=== PATIENT | female | born 1955 | race Caucasian/White ===

== ENCOUNTER → 2017-01-11 | Outpatient (CLI) | payer MEDICARE, OTHER | LOC: WI 15:00 | PROVIDERS: ATTEND Obstetrics & Gynecology Gynecology | DX: Z12.31 Encounter for screening mammogram for malignant neoplasm of breast (principal) | CPT/HCPCS: 77067; G0202 ==

== ENCOUNTER 2017-04-30 06:17 | Inpatient (IN) | payer MEDICARE, OTHER ==
[2017-04-30] MEDS ORDERED: PROPOFOL 100 ML IV ONE ×2 (06:30→12:00)
--- NOTE | 2017-04-30 06:37 | ER Document Report ---
ED General - General Stated Complaint: UNRESPONSIVE Time Seen by Provider: 04/30/17 06:27 Mode of Arrival: Medic Information source: Emergency Med Personnel Cannot obtain history due to: Altered mental status Notes: 62-year-old female found minimally responsive by EMS. notes last night he noted she was normal at 1130, patient has threatened suicidal ideations over the past few days. Patient is on many medications. Patient found with a GCS of 6 intermittent decorticate and decerebrate movements TRAVEL OUTSIDE OF THE [place] IN LAST 30 DAYS: No - HPI Onset: Just prior to arrival Onset/Duration: Sudden Quality of pain: No pain Severity: Severe Pain Level: Denies Associated symptoms: Other Exacerbated by: Denies Relieved by: Denies Similar symptoms previously: No Recently seen / treated by doctor: No - Related Data Allergies/Adverse Reactions: Sulfa (Sulfonamide Antibiotics) Allergy (Verified 04/30/17 08:56) RASH Past Medical History - Social History Smoking Status: Never Smoker Cigarette use (# per day): No Chew tobacco use (# tins/day): No Smoking Education Provided: No Family History: Reviewed & Not Pertinent - Past Medical History Cardiac Medical History: Denies: Hx Heart Attack, Hx Hypertension Pulmonary Medical History: Denies: Hx Asthma Neurological Medical History: Denies: Hx Cerebrovascular Accident, Hx Seizures GI Medical History: Denies: Hx Hepatitis, Hx Hiatal Hernia, Hx Ulcer Musculoskeltal Medical History: Reports Hx Arthritis Infectious Medical History: Denies: Hx Hepatitis Past Surgical History: Reports: Hx Orthopedic Surgery - left knee surgery, Hx Tonsillectomy. Denies: Hx Hysterectomy, Hx Mastectomy, Hx Open Heart Surgery, Hx Pacemaker Review of Systems - Review of Systems Notes: ALL OTHER SYSTEMS REVIEWED AND NEGATIVE. PHYSICAL EXAMINATION: GENERAL: Obese female HEAD: Atraumatic, normocephalic. EYES: Pupils are 3 mm bilateral minimally reactive ENT: Nares patent, oropharynx clear without exudates. Moist mucous membranes. NECK: Normal range of motion, supple without lymphadenopathy LUNGS: Breath sounds clear to auscultation bilaterally and equal. No wheezes rales or rhonchi. HEART: Regular rate and rhythm without murmurs ABDOMEN: Soft, nontender, nondistended abdomen. No guarding, no rebound. No masses appreciated. Female : deferred Musculoskeletal: Normal range of motion, no pitting or edema. No cyanosis. NEUROLOGICAL: GCS 6, E1, V1, M4 SKIN: Warm, Dry, normal turgor, no rashes or lesions noted. Dictation was performed using [employer] voice recognition software Physical Exam - Vital signs Vitals: Resp Pulse Ox 17 98 04/30/17 06:19 04/30/17 06:19 Course - Re-evaluation Re-evalutation: 04/30/17 06:37 Patient was immediately intubated on arrival due to GCS of 6 for airway protection. There is a concern for overdose per . At this time labwork is pending CT of the head has been ordered 04/30/17 08:46 CT negative, no obvious source of infection except possible pneumonia given hx of suicidal thoughts this may be more likely a suicide attempt pt is stable at this time, Dr Nanda mcgovern 04/30/17 09:03 Patient will be admitted to the primary care physician at this time - Vital Signs Vital signs: Temp Pulse Resp BP Pulse Ox 96.0 F L 14 105/60 100 04/30/17 08:58 04/30/17 08:58 04/30/17 08:58 04/30/17 08:58 - Laboratory Result Diagrams: 04/30/17 07:05 04/30/17 07:05 Laboratory results interpreted by me: 04/30/17 04/30/17 04/30/17 07:05 07:05 07:37 Hct 35.4 L BUN 26 H Glucose 139 H Direct Bilirubin 0.6 H Urine Ascorbic Acid 40 H Salicylates < 1.0 L Acetaminophen < 10 L - Diagnostic Test Radiology reviewed: Image reviewed, Reports reviewed - Possible pneumonia - EKG Interpretation by Me EKG shows normal: Sinus rhythm, Gordon, Intervals, QRS Complexes Critical Care Note - Critical Care Note Total time excluding time spent on procedures (mins): 55 Comments: 55 minutes of critical care time spent in direct contact evaluating and reevaluating the patient, treating symptoms, reviewing labs and studies and speaking with family and consultants excluding any procedures Discharge - Discharge Clinical Impression: Suicide attempt Respiratory failure Qualifiers: Chronicity: acute Respiratory failure complication: unspecified whether with hypoxia or hypercapnia Qualified Code(s): J96.00 - Acute respiratory failure, unspecified whether with hypoxia or hypercapnia Pneumonia Qualifiers: Pneumonia type: due to unspecified organism Laterality: left Lung location: lower lobe of lung Qualified Code(s): J18.1 - Lobar pneumonia, unspecified organism Altered mental status Qualifiers: Altered mental status type: coma Coma depth: [place] coma 3-8 Coma timing: in the field (EMT or ambulance) Qualified Code(s): R40.2431 - [place] coma scale score 3-8, in the field [EMT or ambulance] Condition: Fair Disposition: ADMITTED INPATIENT Admitting Provider: [facility] Unit Admitted: ICU
[2017-04-30] MEDS ORDERED: FENTANYL CITRATE INJ/PF 100 MCG/2 ML AMPUL IV ONE ×2 (06:45→07:55)
[2017-04-30] MEDS ORDERED: MIDAZOLAM HCL 100 ML IV PRN (06:45)
[2017-04-30] MEDS ORDERED: FENTANYL CITRATE INJ/PF 100 MCG/2 ML AMPUL ONE (06:48)
[2017-04-30] MEDS ORDERED: MIDAZOLAM HCL 100 ML IV ONE (06:49)
--- NOTE | 2017-04-30 07:07 | RADIOLOGY REPORT (SQ) ---
EXAM DESCRIPTION: CHEST SINGLE VIEW COMPLETED DATE/TIME: 04/30/2017 6:50 am REASON FOR STUDY: post intubation COMPARISON: 11/05/2011. EXAM PARAMETERS: NUMBER OF VIEWS: One view. TECHNIQUE: Single frontal radiographic view of the chest acquired. RADIATION DOSE: NA LIMITATIONS: None. FINDINGS: LUNGS AND PLEURA: Moderate lung volumes. Small atelectasis or scar of the left lower lung . MEDIASTINUM AND HILAR STRUCTURES: No masses. Contour normal. HEART AND VASCULAR STRUCTURES: Mild enlargement of the cardiac silhouette. BONES: No acute findings. HARDWARE: Adequate appearing endotracheal and NG tubes. OTHER: No other significant finding. IMPRESSION: New small left lower lobar atelectasis or scar. Moderate lung volumes. Lines and tubes . TECHNICAL DOCUMENTATION: JOB ID: [id number]
[2017-04-30 07:27] LABS: VENOUS BLOOD BASE EXCESS 1.1 mmol/L; VENOUS BLOOD HCO3 28.2 mmol/L (20-32); VENOUS BLOOD PCO2 56.3 mmHg (35-63); VENOUS BLOOD PH 7.32 (7.30-7.42)
[2017-04-30] MEDS ORDERED: LEVOFLOXACIN 750 MG/D5W RTU 150 ML IV ONE (07:30)
[2017-04-30 07:31] LABS: ABSOLUTE EOSINOPHILS # (AUTO) 0.1 10^3/uL (0.0-0.6); ABSOLUTE LYMPHOCYTES (AUTO) 1.2 10^3/uL (0.5-4.7); ABSOLUTE MONOCYTES (AUTO) 0.4 10^3/uL (0.1-1.4); ABSOLUTE NEUT (AUTO) 4.4 10^3/uL (1.7-8.2); BASOPHILS % (AUTO) 0.4 % (0-2); EOSINOPHILS % (AUTO) 2.3 % (0-6); HEMATOCRIT 35.4 % (36.0-47.0); HEMOGLOBIN 12.1 g/dL (12.0-15.5); HGB HCT DIFFERENCE 0.9; LYMPHOCYTES % (AUTO) 19.2 % (13-45); MEAN CORPUSCULAR HEMOGLOBIN 31.7 pg (27.0-33.4); MEAN CORPUSCULAR HGB CONC 34.2 g/dL (32.0-36.0); MEAN CORPUSCULAR VOLUME 93 fl (80-97); MONOCYTES % (AUTO) 7.1 % (3-13); RED BLOOD COUNT 3.82 10^6/uL (3.72-5.28); RED CELL DISTRIBUTION WIDTH 13.7 % (11.5-14.0); WHITE BLOOD COUNT 6.2 10^3/uL (4.0-10.5)
[2017-04-30 07:32] LABS: PROTHROMBIN TIME 12.2 SEC (11.4-15.4)
[2017-04-30] MEDS ORDERED: NALOXONE HCL INJ 2 MG/2 ML DISP.SYRIN ONE (07:35)
[2017-04-30] MEDS ORDERED: ETOMIDATE INJ/PF 20 MG/10 ML SDV IV ONE ×2 (07:35→08:45)
[2017-04-30 07:41] LABS: ALANINE AMINOTRANSFERASE 33 U/L (9-52); ALBUMIN 4.1 g/dL (3.5-5.0); ALKALINE PHOSPHATASE 94 U/L (38-126); ANION GAP 9 (5-19); ASPARTATE AMINO TRANSFERASE 24 U/L (14-36); BILIRUBIN,DIRECT 0.6 mg/dL (0.0-0.4); BILIRUBIN,TOTAL 0.7 mg/dL (0.2-1.3); BLOOD UREA NITROGEN 26 mg/dL (7-20); CALCIUM 9.1 mg/dL (8.4-10.2); CARBON DIOXIDE 26 mmol/L (22-30); CHLORIDE 103 mmol/L (98-107); CREATININE RESULT 0.94 mg/dL (0.52-1.25); GLUCOSE 139 mg/dL (75-110); POTASSIUM 4.3 mmol/L (3.6-5.0); SODIUM 138.2 mmol/L (137-145); TOTAL PROTEIN 6.9 g/dL (6.3-8.2)
--- NOTE | 2017-04-30 07:52 | EKG REPORT ---
SEVERITY:- ABNORMAL ECG - SINUS RHYTHM FIRST DEGREE AV BLOCK LVH BY VOLTAGE : Confirmed by: Danish Adams MD 30-Apr-2017 07:51:24
[2017-04-30 07:54] LABS: APPEARANCE,URINE CLEAR; BILIRUBIN,URINE NEGATIVE (NEGATIVE); GLUCOSE, URINE NEGATIVE (NEGATIVE); KETONES,URINE NEGATIVE (NEGATIVE); LEUKOCYTE ESTERASE,URINE NEGATIVE (NEGATIVE); NITRITE,URINE NEGATIVE (NEGATIVE); PROTEIN,URINE NEGATIVE (NEGATIVE); URINE SPECIFIC GRAVITY 1.023; UROBILINOGEN,URINE NEGATIVE mg/dL (<2.0)
[2017-04-30 08:19] LABS: URINE BARBITURATES SCREEN NEGATIVE; URINE METHADONE SCREEN NEGATIVE; URINE OPIATES LOW NEGATIVE; URINE PHENCYCLIDINE SCREEN NEGATIVE
[2017-04-30] MEDS: NORMAL SALINE 1000 ML 1,000 ML IV PRN ×5 (08:31→22:28)
[2017-04-30] MEDS ORDERED: NORMAL SALINE 100 ML with VECURONIUM BROMIDE 10 MG IV PRN ×2 (08:34)
--- NOTE | 2017-04-30 08:34 | RADIOLOGY REPORT (SQ) ---
EXAM DESCRIPTION: CT HEAD WITHOUT COMPLETED DATE/TIME: 04/30/2017 8:15 am REASON FOR STUDY: altered COMPARISON: None. TECHNIQUE: Axial images acquired through the brain without intravenous contrast. Images reviewed wi th bone, brain and subdural windows. Images stored on PACS. All CT scanners at this facility use dose modulation, iterative reconstruction, and/or weight based d osing when appropriate to reduce radiation dose to as low as reasonably achievable (ALARA). [facility]: Dose Right [facility]: CareDose [facility]: Dose Right [facility]: Teradose 4D [facility]: [employer] RADIATION DOSE: Up-to-date CT equipment and radiation dose reduction techniques were employed. CTDIv ol: 56.2 mGy. DLP: 1163 mGy-cm. mGy. LIMITATIONS: Motion artifact, streak artifact from earrings FINDINGS: Mild motion artifact throughout the study. No acute intracranial hemorrhage, mass effect, or midline shift. Spotty white matter disease. Nasoenteric and endotracheal tubes are seen at the bottom edge of the field of view. Caps IMPRESSION: Motion artifact throughout the study. No major intracranial hemorrhage, mass effect or midline shift. TECHNICAL DOCUMENTATION: JOB ID: [id number] Quality ID # [id number]: Final reports with documentation of one or more dose reduction techniques (e.g., Au tomated exposure control, adjustment of the mA and/or kV according to patient size, use of iterative reconstruction technique) 2010 [facility]- All Rights Reserved
[2017-04-30] MEDS ORDERED: SUCCINYLCHOLINE CHLORIDE INJ 200 MG/10 ML VIAL IV ONE (08:45)
[2017-04-30] MEDS ORDERED: ROCURONIUM BROMIDE INJ 50 MG/5 ML VIAL IV ONE ×2 (09:06→10:49)
[2017-04-30] MEDS ORDERED: ENOXAPARIN SODIUM INJ 40 MG/0.4 ML DISP.SYRIN SUBCUT SCH (10:00)
[2017-04-30] MEDS ORDERED: DEXTROSE 40% GEL 15 GM TUBE PO PRN ×2 (10:00)
[2017-04-30] MEDS ORDERED: GLUCAGON,HUMAN RECOMB 1 MG INJ SUBCUT PRN (10:00)
[2017-04-30] MEDS ORDERED: DEXTROSE 50%-WATER 25 GM/50 ML DISP.SYRIN IV PRN ×2 (10:00)
[2017-04-30 10:02] LABS: ARTERIAL BLOOD BASE EXCESS -2.8 mmol/L; ARTERIAL BLOOD O2 SATURATION 97.4 % (94-98)
[2017-04-30] MEDS: FAMOTIDINE INJ/PF 20 MG/2 ML SDV IV SCH ×2 (10:18→21:06)
--- NOTE | 2017-04-30 10:35 | PDOC CONSULTATION ---
Consultation Consult Date: 04/30/17 Attending physician:: BABAR JAIME Consult reason:: acute resp failure History of Present Illness Admission Date/PCP: 04/30/17 09:31 BABAR JAIME, History of Present Illness: IRA VALLEJO is a 62-year-old female found by spouse to be on the floor unresponsive call EMT subsequently patient was brought to the emergency room intubated. She has not been seen in her normal state 6-7 hours before the discovery. She had no prior complaints his pain nausea vomiting fevers chills shortness of breath. He has no childhood history of lung disease a does have a history of being exposed to passive smoke as a child and adult she has never smoked she lives with spouse they have several dogs no recent travel outside [place] she sleeps on 2 pillows occasional PND occasional nocturnal cough occasional edema frequent snoring but no reports of witnessed apneas. Past Medical History Cardiac Medical History: Denies: Myocardial Infarction, Hypertension Pulmonary Medical History: Denies: Asthma Neurological Medical History: Denies: Seizures GI Medical History: Denies: Hepatitis, Hiatal Hernia Musculoskeltal Medical History: Reports: Arthritis Hematology: Reports: Anemia Denies: Sickle Cell Disease Past Surgical History Past Surgical History: Reports: Orthopedic Surgery - left knee surgery, Tonsillectomy Denies: Amputation, Hysterectomy, Mastectomy, Pacemaker Social History Information Source: Relative, [facility] Records Lives with: Family Smoking Status: Never Smoker Passive smoke exposure as: Both Do you have pets?: Yes Family History Family History: Reviewed & Not Pertinent Parental Family History Reviewed: No Children Family History Reviewed: No Sibling(s) Family History Reviewed.: No Medication/Allergy Allergies/Adverse Reactions: Sulfa (Sulfonamide Antibiotics) Allergy (Verified 04/30/17 08:56) RASH Review of Systems ROS unobtainable: Due to endotracheal tube, Due to mental status Physical Exam Vital Signs: Temp Pulse Resp BP Pulse Ox 97.3 F 14 105/62 100 04/30/17 10:25 04/30/17 10:25 04/30/17 10:25 04/30/17 10:25 Intake & Output 04/29/17 04/30/17 05/01/17 06:59 06:59 06:59 Output Total 250 Balance -250 General appearance: PRESENT: no acute distress, disheveled, obese, well- developed Head exam: PRESENT: atraumatic, normocephalic Eye exam: PRESENT: conjunctiva pale Mouth exam: PRESENT: dry mucosa, neck supple, tongue midline, other - ET tube in place day #1 Neck exam: ABSENT: carotid bruit, JVD, lymphadenopathy, thyromegaly Respiratory exam: PRESENT: decreased breath sounds, prolonged expiratory phas, rales, rhonchi, symmetrical, unlabored Cardiovascular exam: PRESENT: RRR, +S1, +S2 Pulses: PRESENT: normal radial pulses GI/Abdominal exam: PRESENT: normal bowel sounds, soft. ABSENT: distended, guarding, mass, organolmegaly, rebound, tenderness Rectal exam: PRESENT: deferred Gentrourinary exam: PRESENT: indwelling catheter Musculoskeletal exam: PRESENT: normal inspection Skin exam: PRESENT: dry, warm Results Laboratory Results: 04/30/17 09:40 Carbonic Acid 1.30 HCO3/H2CO3 Ratio 17:1 ABG pH 7.34 L ABG pCO2 43.1 ABG pO2 103.1 H ABG HCO3 22.8 ABG O2 Saturation 97.4 ABG Base Excess -2.8 FiO2 40% Impressions: Chest X-Ray 04/30/17 06:28 IMPRESSION: New small left lower lobar atelectasis or scar. Moderate lung volumes. Lines and tubes. Head CT 04/30/17 06:37 IMPRESSION: Motion artifact throughout the study. No major intracranial hemorrhage, mass effect or midline shift. Assessment & Plan - Diagnosis (1) Pneumonia Qualifiers: Pneumonia type: due to unspecified organism Laterality: left Lung location: lower lobe of lung Qualified Code(s): J18.1 - Lobar pneumonia, unspecified organism Is this a current diagnosis for this admission?: YesPlan: Radiographic suggestion of an infiltrate left base (2) Respiratory failure Qualifiers: Chronicity: acute Respiratory failure complication: unspecified whether with hypoxia or hypercapnia Qualified Code(s): J96.00 - Acute respiratory failure, unspecified whether with hypoxia or hypercapnia Is this a current diagnosis for this admission?: YesPlan: Hypoxic and hypercapnic with acidosis will ventilate appropriately (3) Suicide attempt Is this a current diagnosis for this admission?: YesPlan: Circumstances around events not completely clear to this observer - Time Critical Time spent with patient: 35 or more minutes - Spoke with family PCP RN RT 55 min
[2017-04-30] MEDS ORDERED: ENOXAPARIN SODIUM INJ 40 MG/0.4 ML DISP.SYRIN SUBCUT ONE (11:00)
--- NOTE | 2017-04-30 12:17 | PDOC H&P ---
History of Present Illness Admission Date/PCP: 04/30/17 10:00 BABAR JAIME, Patient complains of: Unresponsive History of Present Illness: The patient is a 62-year-old white female with past medical history of hypertension and SVT who apparently was found this morning by her knee as a computer unresponsive. EMS was called and patient was brought into the emergency room where she was evaluated found to be in distress and was intubated. The patient does have a history of SVT and hypertension. Past Medical History Cardiac Medical History: Reports: Hyperlipidema, Hypertension Denies: Myocardial Infarction Pulmonary Medical History: Denies: Asthma Neurological Medical History: Denies: Seizures Endocrine Medical History: Reports: Hypothyroidism GI Medical History: Denies: Hepatitis, Hiatal Hernia Musculoskeltal Medical History: Reports: Arthritis Psychiatric Medical History: Reports: Depression Hematology: Reports: Anemia Denies: Sickle Cell Disease Past Surgical History Past Surgical History: Reports: Herniorrhaphy - Ovarian cyst resection Bunionectomy Cleft lip repair, Orthopedic Surgery - left knee surgery, Tonsillectomy Denies: Amputation, Hysterectomy, Mastectomy, Pacemaker Social History Information Source: Patient Lives with: Family Smoking Status: Never Smoker Frequency of Alcohol Use: Rare Hx Recreational Drug Use: No - Advance Directive Resuscitation Status: Full Code Family History Family History: CAD Parental Family History Reviewed: Yes Children Family History Reviewed: Yes Sibling(s) Family History Reviewed.: Yes Medication/Allergy Home Medications: Bupropion HCl [Wellbutrin Xl 300mg 24hr Tablet] 1 tab PO DAILY 04/30/17 Diltiazem HCl [Diltiazem ER] 180 mg PO DAILY 04/30/17 Docusate Sodium [Colace 100 mg Capsule] 100 mg PO DAILY 04/30/17 Duloxetine HCl [Cymbalta] 60 mg PO BID 04/30/17 Levothyroxine Sodium [Synthroid] 125 mcg PO DAILY 04/30/17 Losartan/Hydrochlorothiazide [Hyzaar 50-12.5 Tablet] 1 each PO DAILY 04/30/17 Melatonin 10 mg PO QHS 04/30/17 Meloxicam [Mobic 15 mg Tablet] 15 mg PO DAILY 04/30/17 Metformin HCl [Metformin HCl ER] 500 mg PO QHS 04/30/17 Simvastatin 40 mg PO QHS 04/30/17 Zolpidem Tartrate [Ambien] 10 mg PO QHS 04/30/17 Allergies/Adverse Reactions: Sulfa (Sulfonamide Antibiotics) Allergy (Verified 04/30/17 08:56) RASH Review of Systems All systems: as per PMH Physical Exam Vital Signs: Temp Pulse Resp BP Pulse Ox 98.1 F 76 16 122/64 100 04/30/17 11:10 04/30/17 11:10 04/30/17 11:10 04/30/17 11:10 04/30/17 11:30 Intake & Output 04/29/17 04/30/17 05/01/17 06:59 06:59 06:59 Output Total 250 Balance -250 Weight 132.8 kg General appearance: PRESENT: morbidly obese Head exam: PRESENT: atraumatic Eye exam: PRESENT: conjunctival injection - No becausepatient not being admitted to ICU service Respiratory exam: PRESENT: crackles Additional comments: Presently intubated Cardiovascular exam: PRESENT: RRR, +S1, +S2 Pulses: PRESENT: +1 pedal pulses bilateral GI/Abdominal exam: PRESENT: soft Extremities exam: PRESENT: other Musculoskeletal exam: PRESENT: other Additional comments: Sedated with propofol Results Impressions: Chest X-Ray 04/30/17 06:28 IMPRESSION: New small left lower lobar atelectasis or scar. Moderate lung volumes. Lines and tubes. Head CT 04/30/17 06:37 IMPRESSION: Motion artifact throughout the study. No major intracranial hemorrhage, mass effect or midline shift. Assessment & Plan - Diagnosis (1) Altered mental status Qualifiers: Altered mental status type: coma Coma depth: [place] coma 3-8 Coma timing: in the field (EMT or ambulance) Qualified Code(s): R40.2431 - [place] coma scale score 3-8, in the field [EMT or ambulance] Plan: Continue present management and IV fluids. Continue IV sedation (2) Suicide attempt Is this a current diagnosis for this admission?: YesPlan: We will discuss with the psychiatrist for possible inpatient treatment
[2017-04-30 12:27] LABS: CREATINE KINASE MB 0.96 ng/mL (<4.55)
[2017-04-30 12:32] LABS: TROPONIN I < 0.012 ng/mL
[2017-04-30 14:41] LABS: TROPONIN I < 0.012 ng/mL
[2017-04-30] MEDS: PROPOFOL 100 ML IV PRN ×3 (16:02→22:06)
[2017-04-30 19:33] LABS: CREATINE KINASE MB 6.42 ng/mL (<4.55)
[2017-04-30 19:35] LABS: TROPONIN I < 0.012 ng/mL
[2017-05-01] MEDS: PROPOFOL 100 ML IV PRN ×10 (00:43→22:48)
[2017-05-01 01:14] LABS: CREATINE KINASE MB 4.66 ng/mL (<4.55)
[2017-05-01 01:16] LABS: TROPONIN I < 0.012 ng/mL
[2017-05-01] MEDS: NORMAL SALINE 1000 ML 1,000 ML IV PRN ×2 (03:23→17:06)
[2017-05-01 04:10] LABS: ABSOLUTE EOSINOPHILS # (AUTO) 0.1 10^3/uL (0.0-0.6); ABSOLUTE LYMPHOCYTES (AUTO) 1.4 10^3/uL (0.5-4.7); ABSOLUTE MONOCYTES (AUTO) 1.2 10^3/uL (0.1-1.4); ABSOLUTE NEUT (AUTO) 7.4 10^3/uL (1.7-8.2); BASOPHILS % (AUTO) 0.3 % (0-2); EOSINOPHILS % (AUTO) 0.8 % (0-6); HEMATOCRIT 34.8 % (36.0-47.0); HGB HCT DIFFERENCE 1.2; LYMPHOCYTES % (AUTO) 13.5 % (13-45); MEAN CORPUSCULAR HEMOGLOBIN 31.9 pg (27.0-33.4); MEAN CORPUSCULAR HGB CONC 34.3 g/dL (32.0-36.0); MEAN CORPUSCULAR VOLUME 93 fl (80-97); MONOCYTES % (AUTO) 12.1 % (3-13); RED BLOOD COUNT 3.75 10^6/uL (3.72-5.28); RED CELL DISTRIBUTION WIDTH 13.6 % (11.5-14.0); SEGMENTED NEUTROPHILS % (AUTO) 73.3 % (42-78); WHITE BLOOD COUNT 10.1 10^3/uL (4.0-10.5)
[2017-05-01 04:21] LABS: ALANINE AMINOTRANSFERASE 28 U/L (9-52); ALBUMIN 3.5 g/dL (3.5-5.0); ALKALINE PHOSPHATASE 91 U/L (38-126); ANION GAP 10 (5-19); ASPARTATE AMINO TRANSFERASE 50 U/L (14-36); BILIRUBIN,DIRECT 0.6 mg/dL (0.0-0.4); BILIRUBIN,TOTAL 0.6 mg/dL (0.2-1.3); BLOOD UREA NITROGEN 14 mg/dL (7-20); CALCIUM 8.6 mg/dL (8.4-10.2); CARBON DIOXIDE 24 mmol/L (22-30); CHLORIDE 109 mmol/L (98-107); CREATININE RESULT 0.76 mg/dL (0.52-1.25); GLUCOSE 87 mg/dL (75-110); MAGNESIUM 1.9 mg/dL (1.6-2.3); PHOSPHORUS 3.1 mg/dL (2.5-4.5); POTASSIUM 3.9 mmol/L (3.6-5.0); SODIUM 143.4 mmol/L (137-145); TOTAL PROTEIN 6.1 g/dL (6.3-8.2)
[2017-05-01 07:05] LABS: ARTERIAL BLOOD BASE EXCESS -0.4 mmol/L
--- NOTE | 2017-05-01 07:25 | RADIOLOGY REPORT (SQ) ---
EXAM DESCRIPTION: CHEST SINGLE VIEW COMPLETED DATE/TIME: 05/01/2017 6:31 am REASON FOR STUDY: intubation COMPARISON: 04/30/2017. EXAM PARAMETERS: NUMBER OF VIEWS: One view. TECHNIQUE: Single frontal radiographic view of the chest acquired. RADIATION DOSE: NA LIMITATIONS: None. FINDINGS: LUNGS AND PLEURA: Small bandlike linear opacity of the left lower lobe, moderate lung volu mes. Small bibasilar haziness-layered effusion. MEDIASTINUM AND HILAR STRUCTURES: No masses. Contour normal. HEART AND VASCULAR STRUCTURES: Heart normal in size. Normal vasculature. BONES: No acute findings. HARDWARE: Adequate appearing endotracheal tube and NG tube. OTHER: No other significant finding. IMPRESSION: No significant interval change. TECHNICAL DOCUMENTATION: JOB ID: [id number]
--- NOTE | 2017-05-01 07:46 | EKG REPORT ---
SEVERITY:- OTHERWISE NORMAL ECG - SINUS RHYTHM : Confirmed by: Danish Adams MD 01-May-2017 07:45:51
--- NOTE | 2017-05-01 10:43 | PDOC PROGRESS REPORT ---
Subjective Progress Note for:: 05/01/17 Subjective:: Intubated and sedated daughter at bedside Physical Exam Vital Signs: Temp Pulse Resp BP Pulse Ox 99.7 F 76 15 103/82 98 05/01/17 07:42 05/01/17 07:42 05/01/17 08:00 05/01/17 07:59 05/01/17 08:00 Intake & Output 04/30/17 05/01/17 05/02/17 06:59 06:59 06:59 Intake Total 1424 Output Total 4035 235 Balance -2611 -235 Weight 133.4 kg General appearance: PRESENT: no acute distress, disheveled, obese, well- developed Head exam: PRESENT: atraumatic, normocephalic Eye exam: PRESENT: conjunctiva pale Mouth exam: PRESENT: dry mucosa, neck supple, tongue midline, other - ET tube in place Neck exam: ABSENT: carotid bruit, JVD, lymphadenopathy, thyromegaly Respiratory exam: PRESENT: decreased breath sounds, prolonged expiratory phas, rales, rhonchi, symmetrical, unlabored Cardiovascular exam: PRESENT: RRR, +S1, +S2 Pulses: PRESENT: normal radial pulses GI/Abdominal exam: PRESENT: diminished bowel sounds, soft. ABSENT: distended, guarding, hernia, hyperactive bowel sounds, hypoactive bowel sounds, mass, Haynes's sign, normal bowel sounds, organolmegaly, rebound, rigid, tenderness Rectal exam: PRESENT: deferred Gentrourinary exam: PRESENT: indwelling catheter Musculoskeletal exam: PRESENT: normal inspection Skin exam: PRESENT: dry, warm Results Laboratory Results: 05/01/17 03:51 05/01/17 03:51 05/01/17 05/01/17 05/01/17 03:51 03:51 03:51 WBC 10.1 RBC 3.75 Hgb 12.0 Hct 34.8 L MCV 93 MCH 31.9 MCHC 34.3 RDW 13.6 Plt Count 138 L Seg Neutrophils % 73.3 Lymphocytes % 13.5 Monocytes % 12.1 Eosinophils % 0.8 Basophils % 0.3 Absolute Neutrophils 7.4 Absolute Lymphocytes 1.4 Absolute Monocytes 1.2 Absolute Eosinophils 0.1 Absolute Basophils 0.0 Carbonic Acid HCO3/H2CO3 Ratio ABG pH ABG pCO2 ABG pO2 ABG HCO3 ABG O2 Saturation ABG Base Excess FiO2 Sodium 143.4 Potassium 3.9 Chloride 109 H Carbon Dioxide 24 Anion Gap 10 BUN 14 Creatinine 0.76 Est GFR ( Amer) > 60 Est GFR (Non-Af Amer) > 60 Glucose 87 Calcium 8.6 Phosphorus 3.1 Magnesium 1.9 Total Bilirubin 0.6 AST 50 H ALT 28 Alkaline Phosphatase 91 Total Protein 6.1 L Albumin 3.5 Triglycerides 136 05/01/17 06:40 WBC RBC Hgb Hct MCV MCH MCHC RDW Plt Count Seg Neutrophils % Lymphocytes % Monocytes % Eosinophils % Basophils % Absolute Neutrophils Absolute Lymphocytes Absolute Monocytes Absolute Eosinophils Absolute Basophils Carbonic Acid 1.11 HCO3/H2CO3 Ratio 21:1 ABG pH 7.43 ABG pCO2 36.8 ABG pO2 78.8 L ABG HCO3 23.7 ABG O2 Saturation 96.0 ABG Base Excess -0.4 FiO2 30% Sodium Potassium Chloride Carbon Dioxide Anion Gap BUN Creatinine Est GFR ( Amer) Est GFR (Non-Af Amer) Glucose Calcium Phosphorus Magnesium Total Bilirubin AST ALT Alkaline Phosphatase Total Protein Albumin Triglycerides 04/30/17 04/30/17 04/30/17 13:49 13:49 18:48 Creatine Kinase 770 H 1060 H CK-MB (CK-2) 5.90 H Troponin I < 0.012 04/30/17 05/01/17 05/01/17 18:48 00:32 00:32 Creatine Kinase 976 H CK-MB (CK-2) 6.42 H 4.66 H Troponin I < 0.012 < 0.012 Impressions: Head CT 04/30/17 06:37 IMPRESSION: Motion artifact throughout the study. No major intracranial hemorrhage, mass effect or midline shift. Chest X-Ray 05/01/17 06:00 IMPRESSION: No significant interval change. Assessment & Plan - Diagnosis (1) Pneumonia Qualifiers: Pneumonia type: due to unspecified organism Laterality: left Lung location: lower lobe of lung Qualified Code(s): J18.1 - Lobar pneumonia, unspecified organism Is this a current diagnosis for this admission?: Yes (2) Respiratory failure Qualifiers: Chronicity: acute Respiratory failure complication: unspecified whether with hypoxia or hypercapnia Qualified Code(s): J96.00 - Acute respiratory failure, unspecified whether with hypoxia or hypercapnia Is this a current diagnosis for this admission?: YesPlan: Retrocardiac density persist Oxygenation and ventilation have improved (3) Suicide attempt Is this a current diagnosis for this admission?: Yes - Time Critical Time spent with patient: 25-34 minutes - Spoke with RN RT and family member and primary care physician 55 min
--- NOTE | 2017-05-01 11:23 | PDOC PROGRESS REPORT ---
Subjective Progress Note for:: 05/01/17 Subjective:: The patient is intubated and sedated. She does respond to verbal and tactile stimuli. The daughter is present in the ICU room. She states that they have found an empty bottle of Ambien near her computer where the patient was found unresponsive. Apparently the prescription has been filled on April 26 which makes it 26 tablets. She does have good urine output. Her blood pressure is well controlled. Sputum cultures were sent Physical Exam Vital Signs: Temp Pulse Resp BP Pulse Ox 99.9 F 72 14 119/58 L 99 05/01/17 10:00 05/01/17 10:00 05/01/17 10:00 05/01/17 10:00 05/01/17 10:00 Intake & Output 04/30/17 05/01/17 05/02/17 06:59 06:59 06:59 Intake Total 1424 Output Total 4035 565 Balance -2611 -565 Weight 133.4 kg General appearance: PRESENT: severe distress Head exam: PRESENT: atraumatic Eye exam: PRESENT: conjunctival injection Throat exam: PRESENT: other Neck exam: ABSENT: carotid bruit Respiratory exam: PRESENT: crackles, rhonchi Cardiovascular exam: PRESENT: RRR, +S1, +S2 Pulses: PRESENT: +1 pedal pulses bilateral Vascular exam: PRESENT: normal capillary refill GI/Abdominal exam: PRESENT: soft Extremities exam: PRESENT: full ROM Additional comments: Intubated and sedated Results Laboratory Results: 05/01/17 03:51 05/01/17 03:51 05/01/17 05/01/17 05/01/17 03:51 03:51 03:51 WBC 10.1 RBC 3.75 Hgb 12.0 Hct 34.8 L MCV 93 MCH 31.9 MCHC 34.3 RDW 13.6 Plt Count 138 L Seg Neutrophils % 73.3 Lymphocytes % 13.5 Monocytes % 12.1 Eosinophils % 0.8 Basophils % 0.3 Absolute Neutrophils 7.4 Absolute Lymphocytes 1.4 Absolute Monocytes 1.2 Absolute Eosinophils 0.1 Absolute Basophils 0.0 Carbonic Acid HCO3/H2CO3 Ratio ABG pH ABG pCO2 ABG pO2 ABG HCO3 ABG O2 Saturation ABG Base Excess FiO2 Sodium 143.4 Potassium 3.9 Chloride 109 H Carbon Dioxide 24 Anion Gap 10 BUN 14 Creatinine 0.76 Est GFR ( Amer) > 60 Est GFR (Non-Af Amer) > 60 Glucose 87 Calcium 8.6 Phosphorus 3.1 Magnesium 1.9 Total Bilirubin 0.6 AST 50 H ALT 28 Alkaline Phosphatase 91 Total Protein 6.1 L Albumin 3.5 Triglycerides 136 05/01/17 06:40 WBC RBC Hgb Hct MCV MCH MCHC RDW Plt Count Seg Neutrophils % Lymphocytes % Monocytes % Eosinophils % Basophils % Absolute Neutrophils Absolute Lymphocytes Absolute Monocytes Absolute Eosinophils Absolute Basophils Carbonic Acid 1.11 HCO3/H2CO3 Ratio 21:1 ABG pH 7.43 ABG pCO2 36.8 ABG pO2 78.8 L ABG HCO3 23.7 ABG O2 Saturation 96.0 ABG Base Excess -0.4 FiO2 30% Sodium Potassium Chloride Carbon Dioxide Anion Gap BUN Creatinine Est GFR ( Amer) Est GFR (Non-Af Amer) Glucose Calcium Phosphorus Magnesium Total Bilirubin AST ALT Alkaline Phosphatase Total Protein Albumin Triglycerides 04/30/17 04/30/17 04/30/17 13:49 13:49 18:48 Creatine Kinase 770 H 1060 H CK-MB (CK-2) 5.90 H Troponin I < 0.012 04/30/17 05/01/17 05/01/17 18:48 00:32 00:32 Creatine Kinase 976 H CK-MB (CK-2) 6.42 H 4.66 H Troponin I < 0.012 < 0.012 Impressions: Head CT 04/30/17 06:37 IMPRESSION: Motion artifact throughout the study. No major intracranial hemorrhage, mass effect or midline shift. Chest X-Ray 05/01/17 06:00 IMPRESSION: No significant interval change. Assessment & Plan - Diagnosis (1) Altered mental status Qualifiers: Altered mental status type: coma Coma depth: [place] coma 3-8 Coma timing: in the field (EMT or ambulance) Qualified Code(s): R40.2431 - [place] coma scale score 3-8, in the field [EMT or ambulance] Is this a current diagnosis for this admission?: YesPlan: We will continue with sedation and try to wean off the ventilator (2) Suicide attempt Is this a current diagnosis for this admission?: YesPlan: Possibly intentional with Ambien (3) Pneumonia Qualifiers: Pneumonia type: due to unspecified organism Laterality: left Lung location: lower lobe of lung Qualified Code(s): J18.1 - Lobar pneumonia, unspecified organism Is this a current diagnosis for this admission?: YesPlan: Consideration has been made for possible aspiration. Discussed with pulmonology and we will start clindamycin
[2017-05-01] MEDS: FAMOTIDINE INJ/PF 20 MG/2 ML SDV IV SCH ×2 (12:03→21:02)
[2017-05-01] MEDS: LORAZEPAM INJ 2 MG/1 ML VIAL IV PRN (12:03)
[2017-05-01] MEDS: MIDAZOLAM HCL 100 ML IV PRN (12:28)
[2017-05-01] MEDS: CLINDAMYCIN 600 MG/D5W RTU 50 ML IV SCH ×2 (15:51→21:02)
[2017-05-01] MEDS ORDERED: ACETAMINOPHEN 650 MG SUPP.RECT PR PRN (17:13)
[2017-05-01] MEDS ORDERED: ACETAMINOPHEN SOLN 325 MG/10.15 ML UDCUP NG PRN (17:40)
[2017-05-02] MEDS: PROPOFOL 100 ML IV PRN ×3 (01:17→06:22)
[2017-05-02] MEDS: MIDAZOLAM HCL 100 ML IV PRN (01:17)
[2017-05-02] MEDS: CLINDAMYCIN 600 MG/D5W RTU 50 ML IV SCH ×3 (05:42→21:27)
[2017-05-02] MEDS: NORMAL SALINE 1000 ML 1,000 ML IV PRN ×2 (05:43→21:27)
[2017-05-02 07:50] LABS: ABSOLUTE EOSINOPHILS # (AUTO) 0.1 10^3/uL (0.0-0.6); ABSOLUTE LYMPHOCYTES (AUTO) 1.3 10^3/uL (0.5-4.7); ABSOLUTE MONOCYTES (AUTO) 0.9 10^3/uL (0.1-1.4); ABSOLUTE NEUT (AUTO) 6.6 10^3/uL (1.7-8.2); BASOPHILS % (AUTO) 0.4 % (0-2); EOSINOPHILS % (AUTO) 1.1 % (0-6); HEMATOCRIT 33.2 % (36.0-47.0); HEMOGLOBIN 11.4 g/dL (12.0-15.5); LYMPHOCYTES % (AUTO) 14.6 % (13-45); MEAN CORPUSCULAR HEMOGLOBIN 31.9 pg (27.0-33.4); MEAN CORPUSCULAR HGB CONC 34.3 g/dL (32.0-36.0); MEAN CORPUSCULAR VOLUME 93 fl (80-97); MONOCYTES % (AUTO) 10.2 % (3-13); RED BLOOD COUNT 3.57 10^6/uL (3.72-5.28); RED CELL DISTRIBUTION WIDTH 13.6 % (11.5-14.0); SEGMENTED NEUTROPHILS % (AUTO) 73.7 % (42-78)
[2017-05-02 07:55] LABS: ALANINE AMINOTRANSFERASE 33 U/L (9-52); ALBUMIN 3.3 g/dL (3.5-5.0); ALKALINE PHOSPHATASE 89 U/L (38-126); ANION GAP 9 (5-19); ASPARTATE AMINO TRANSFERASE 35 U/L (14-36); BILIRUBIN,DIRECT 0.5 mg/dL (0.0-0.4); BILIRUBIN,TOTAL 0.7 mg/dL (0.2-1.3); BLOOD UREA NITROGEN 7 mg/dL (7-20); CALCIUM 8.8 mg/dL (8.4-10.2); CARBON DIOXIDE 26 mmol/L (22-30); CHLORIDE 106 mmol/L (98-107); CREATININE RESULT 0.76 mg/dL (0.52-1.25); GLUCOSE 103 mg/dL (75-110); MAGNESIUM 1.7 mg/dL (1.6-2.3); POTASSIUM 3.3 mmol/L (3.6-5.0); SODIUM 141.1 mmol/L (137-145); TOTAL PROTEIN 6.1 g/dL (6.3-8.2)
[2017-05-02 07:56] LABS: ARTERIAL BLOOD BASE EXCESS 1.5 mmol/L; ARTERIAL BLOOD O2 SATURATION 98.2 % (94-98)
--- NOTE | 2017-05-02 08:15 | EKG REPORT ---
SEVERITY:- ABNORMAL ECG - SINUS RHYTHM FIRST DEGREE AV BLOCK PROBABLE LVH WITH SECONDARY REPOL ABNRM : Confirmed by: Danish Adams MD 02-May-2017 08:14:30
--- NOTE | 2017-05-02 08:51 | PDOC PROGRESS REPORT ---
Subjective Progress Note for:: 05/02/17 Subjective:: The patient is still intubated and been presently weaned off the sedation. She is responding to some verbal and tactile stimuli Physical Exam Vital Signs: Temp Pulse Resp BP Pulse Ox 99.0 F 68 16 135/68 H 100 05/02/17 07:58 05/02/17 07:58 05/02/17 07:58 05/02/17 07:58 05/02/17 07:58 Intake & Output 05/01/17 05/02/17 05/03/17 06:59 06:59 06:59 Intake Total 1424 3137 Output Total 4034 3200 345 Balance -2611 -63 -345 Weight 133.4 kg 132.3 kg General appearance: PRESENT: mild distress Head exam: PRESENT: atraumatic Eye exam: PRESENT: conjunctiva pink Neck exam: ABSENT: carotid bruit Respiratory exam: PRESENT: crackles Cardiovascular exam: PRESENT: RRR, +S1, +S2 Pulses: PRESENT: +1 pedal pulses bilateral GI/Abdominal exam: PRESENT: soft Musculoskeletal exam: PRESENT: other Results Laboratory Results: 05/01/17 03:51 05/01/17 03:51 04/30/17 04/30/17 04/30/17 13:49 13:49 18:48 Creatine Kinase 770 H 1060 H CK-MB (CK-2) 5.90 H Troponin I < 0.012 04/30/17 05/01/17 05/01/17 18:48 00:32 00:32 Creatine Kinase 976 H CK-MB (CK-2) 6.42 H 4.66 H Troponin I < 0.012 < 0.012 Impressions: Head CT 04/30/17 06:37 IMPRESSION: Motion artifact throughout the study. No major intracranial hemorrhage, mass effect or midline shift. Assessment & Plan - Diagnosis (1) Altered mental status Qualifiers: Altered mental status type: coma Coma depth: [place] coma 3-8 Coma timing : in the field (EMT or ambulance) Qualified Code(s): R40.2431 - [place] coma scale score 3-8, in the field [EMT or ambulance] Is this a current diagnosis for this admission?: Yes Plan: Continue slow wean from the sedating medications (2) Suicide attempt Is this a current diagnosis for this admission?: Yes Plan: Once extubated and weaned off the sedation will need a psychiatric evaluation (3) Pneumonia Qualifiers: Pneumonia type: due to unspecified organism Laterality: left Lung location: lower lobe of lung Qualified Code(s): J18.1 - Lobar pneumonia, unspecified organism Is this a current diagnosis for this admission?: Yes Plan: Continue with IV antibiotics (4) Hypokalemia Is this a current diagnosis for this admission?: Yes Plan: We will supplement with p.o. potassium
[2017-05-02] MEDS ORDERED: DEXAMETHASONE SOD PHOSPHATE INJ 4 MG/1 ML VIAL ONE (08:59)
--- NOTE | 2017-05-02 09:07 | RADIOLOGY REPORT (SQ) ---
EXAM DESCRIPTION: CHEST SINGLE VIEW COMPLETED DATE/TIME: 05/02/2017 8:14 am REASON FOR STUDY: intubation COMPARISON: AP chest 05/01/2017, 04/30/2017, 11/05/2011 EXAM PARAMETERS: NUMBER OF VIEWS: One view. TECHNIQUE: Single frontal radiographic view of the chest acquired. RADIATION DOSE: NA LIMITATIONS: None. FINDINGS: LUNGS AND PLEURA: Left retrocardiac consolidation with air bronchograms atelectasis versus pneumonia. This is increased compared 05/01/2017 and new compared 04/30/2017. Right lung well inflated and clear. No gross pleural effusion or pneumothorax. MEDIASTINUM AND HILAR STRUCTURES: No masses. Contour normal. HEART AND VASCULAR STRUCTURES: Heart normal in size. Normal vasculature. BONES: No acute findings. HARDWARE: Endotracheal tube tip midtrachea. Nasogastric tube tip and side port in the stomach. OTHER: No other significant finding. IMPRESSION: Partial collapse left lower lobe, with are without superimposed pneumonia. This is incr eased compared to previous studies TECHNICAL DOCUMENTATION: JOB ID: [id number]
[2017-05-02] MEDS: FAMOTIDINE INJ/PF 20 MG/2 ML SDV IV SCH ×2 (10:18→21:27)
[2017-05-02] MEDS: LORAZEPAM INJ 2 MG/1 ML VIAL IV PRN ×4 (10:19→22:01)
[2017-05-02] MEDS ORDERED: LORAZEPAM INJ 2 MG/1 ML VIAL ONE (10:57)
[2017-05-02] MEDS ORDERED: OLANZAPINE INJ/PF 10 MG SDV IM PRN (13:28)
[2017-05-02] MEDS ORDERED: OLANZAPINE INJ/PF 10 MG SDV IM ONE (14:00)
[2017-05-02] MEDS ORDERED: CHLORPROMAZINE HCL INJ 25 MG/1 ML AMPULE IM SCH ×2 (14:30→20:00)
[2017-05-02] MEDS: IPRATROPIUM/ALBUTEROL 0.5-2.5 MG/3 ML AMPUL NEB PRN (14:31)
--- NOTE | 2017-05-02 16:22 | PDOC PROGRESS REPORT ---
Subjective Progress Note for:: 05/02/17 Subjective:: 24 hours status post extubation disoriented and confused Physical Exam Vital Signs: Temp Pulse Resp BP Pulse Ox 99.0 F 68 16 135/68 H 100 05/02/17 07:58 05/02/17 07:58 05/02/17 07:58 05/02/17 07:58 05/02/17 07:58 Intake & Output 05/01/17 05/02/17 05/03/17 06:59 06:59 06:59 Intake Total 1424 9747 Output Total 4038 3200 345 Balance -2611 -63 -345 Weight 133.4 kg 132.3 kg General appearance: PRESENT: disheveled, mild distress, morbidly obese, well- developed Head exam: PRESENT: atraumatic, normocephalic Eye exam: PRESENT: conjunctiva pale, EOMI Mouth exam: PRESENT: moist, neck supple, tongue midline Neck exam: PRESENT: carotid bruit Respiratory exam: PRESENT: decreased breath sounds, prolonged expiratory phas, rhonchi, symmetrical, unlabored Cardiovascular exam: PRESENT: RRR, +S1, +S2 Pulses: PRESENT: normal radial pulses GI/Abdominal exam: PRESENT: diminished bowel sounds, soft. ABSENT: distended, guarding, mass, organolmegaly, rebound, tenderness Rectal exam: PRESENT: deferred Gentrourinary exam: PRESENT: indwelling catheter Musculoskeletal exam: PRESENT: normal inspection Neurological exam: PRESENT: awake Psychiatric exam: PRESENT: agitated, anxious Focused psych exam: PRESENT: delusional, paranoid Skin exam: PRESENT: dry, warm Results Laboratory Results: 05/01/17 03:51 05/01/17 03:51 04/30/17 04/30/17 04/30/17 13:49 13:49 18:48 Creatine Kinase 770 H 1060 H CK-MB (CK-2) 5.90 H Troponin I < 0.012 04/30/17 05/01/17 05/01/17 18:48 00:32 00:32 Creatine Kinase 976 H CK-MB (CK-2) 6.42 H 4.66 H Troponin I < 0.012 < 0.012 Impressions: Head CT 04/30/17 06:37 IMPRESSION: Motion artifact throughout the study. No major intracranial hemorrhage, mass effect or midline shift. Assessment & Plan - Diagnosis (1) Pneumonia Qualifiers: Pneumonia type: due to unspecified organism Laterality: left Lung location: lower lobe of lung Qualified Code(s): J18.1 - Lobar pneumonia, unspecified organism Is this a current diagnosis for this admission?: Yes Plan: Retrocardiac air bronchograms 04/30 & 05/01 more consolidation retrocardiac opacification 05/02 per this observer (2) Respiratory failure Qualifiers: Chronicity: acute Respiratory failure complication: unspecified whether with hypoxia or hypercapnia Qualified Code(s): J96.00 - Acute respiratory failure, unspecified whether with hypoxia or hypercapnia Is this a current diagnosis for this admission?: Yes Plan: Oxygenating stable at this time (3) Suicide attempt Is this a current diagnosis for this admission?: Yes - Time Critical Time spent with patient: 35 or more minutes - Spoke with RN, RT, daughter, and primary care physician 55 min
[2017-05-02] MEDS ORDERED: FUROSEMIDE INJ/PF 40 MG/4 ML SDV ONE (17:11)
[2017-05-02] MEDS: OLANZAPINE INJ/PF 10 MG SDV IM SCH (17:48)
[2017-05-03] MEDS: LORAZEPAM INJ 2 MG/1 ML VIAL IV PRN ×3 (02:29→21:09)
[2017-05-03 04:45] LABS: ABSOLUTE LYMPHOCYTES (AUTO) 1.1 10^3/uL (0.5-4.7); ABSOLUTE MONOCYTES (AUTO) 0.8 10^3/uL (0.1-1.4); ABSOLUTE NEUT (AUTO) 8.8 10^3/uL (1.7-8.2); BASOPHILS % (AUTO) 0.2 % (0-2); EOSINOPHILS % (AUTO) 0.1 % (0-6); HEMATOCRIT 30.2 % (36.0-47.0); HEMOGLOBIN 10.5 g/dL (12.0-15.5); HGB HCT DIFFERENCE 1.3; LYMPHOCYTES % (AUTO) 9.9 % (13-45); MEAN CORPUSCULAR HEMOGLOBIN 31.6 pg (27.0-33.4); MEAN CORPUSCULAR HGB CONC 34.8 g/dL (32.0-36.0); MEAN CORPUSCULAR VOLUME 91 fl (80-97); MONOCYTES % (AUTO) 7.9 % (3-13); RED BLOOD COUNT 3.33 10^6/uL (3.72-5.28); RED CELL DISTRIBUTION WIDTH 13.2 % (11.5-14.0); SEGMENTED NEUTROPHILS % (AUTO) 81.9 % (42-78); WHITE BLOOD COUNT 10.7 10^3/uL (4.0-10.5)
[2017-05-03 05:14] LABS: ALANINE AMINOTRANSFERASE 34 U/L (9-52); ALBUMIN 3.3 g/dL (3.5-5.0); ALKALINE PHOSPHATASE 81 U/L (38-126); ANION GAP 12 (5-19); ASPARTATE AMINO TRANSFERASE 40 U/L (14-36); BILIRUBIN,DIRECT 0.5 mg/dL (0.0-0.4); BILIRUBIN,TOTAL 1.1 mg/dL (0.2-1.3); BLOOD UREA NITROGEN 10 mg/dL (7-20); CALCIUM 8.6 mg/dL (8.4-10.2); CARBON DIOXIDE 28 mmol/L (22-30); CHLORIDE 104 mmol/L (98-107); CREATININE RESULT 0.76 mg/dL (0.52-1.25); GLUCOSE 88 mg/dL (75-110); MAGNESIUM 1.5 mg/dL (1.6-2.3); SODIUM 143.8 mmol/L (137-145); TOTAL PROTEIN 5.9 g/dL (6.3-8.2)
[2017-05-03 05:15] LABS: ARTERIAL BLOOD BASE EXCESS 4.5 mmol/L; ARTERIAL BLOOD O2 SATURATION 95.1 % (94-98)
[2017-05-03] MEDS: CLINDAMYCIN 600 MG/D5W RTU 50 ML IV SCH ×3 (05:38→21:09)
[2017-05-03] MEDS: OLANZAPINE INJ/PF 10 MG SDV IM SCH ×2 (05:39→17:57)
[2017-05-03] MEDS: NORMAL SALINE 1000 ML 1,000 ML IV PRN (05:39)
[2017-05-03] MEDS ORDERED: POTASSI CL 20 MEQ/50 ML RIDER 20 MEQ/50 ML RTUPB IV ONE (06:13)
[2017-05-03] MEDS: POTASSIUM CHLORIDE 20 MEQ/50 ML RTU IV SCH ×3 (06:14→10:10)
--- NOTE | 2017-05-03 08:11 | EKG REPORT ---
SEVERITY:- ABNORMAL ECG - SINUS RHYTHM FIRST DEGREE AV BLOCK NONSPECIFIC ST-T CHANGES DIFFUSE LEADS : Confirmed by: Danish Adams MD 03-May-2017 08:10:46
--- NOTE | 2017-05-03 08:44 | PDOC PROGRESS REPORT ---
Subjective Progress Note for:: 05/03/17 Subjective:: extubated. agitated Physical Exam Vital Signs: Temp Pulse Resp BP Pulse Ox 99.1 F 89 21 H 134/66 H 97 05/03/17 08:00 05/03/17 08:00 05/03/17 08:00 05/03/17 08:00 05/03/17 08:00 Intake & Output 05/02/17 05/03/17 05/04/17 06:59 06:59 06:59 Intake Total 3137 1984 Output Total 3200 5820 150 Balance -63 -3836 -150 Weight 132.3 kg 126.1 kg General appearance: PRESENT: mild distress Head exam: PRESENT: atraumatic Eye exam: PRESENT: conjunctiva pink Neck exam: ABSENT: carotid bruit Respiratory exam: PRESENT: crackles, rhonchi Cardiovascular exam: PRESENT: RRR, +S1, +S2 Pulses: PRESENT: +1 pedal pulses bilateral GI/Abdominal exam: PRESENT: soft Extremities exam: PRESENT: full ROM Musculoskeletal exam: PRESENT: full ROM Neurological exam: PRESENT: awake Psychiatric exam: PRESENT: agitated Results Laboratory Results: 05/03/17 04:07 05/03/17 04:07 05/02/17 05/02/17 05/02/17 04:58 06:40 06:40 WBC 9.0 RBC 3.57 L Hgb 11.4 L Hct 33.2 L MCV 93 MCH 31.9 MCHC 34.3 RDW 13.6 Plt Count 173 Seg Neutrophils % 73.7 Lymphocytes % 14.6 Monocytes % 10.2 Eosinophils % 1.1 Basophils % 0.4 Absolute Neutrophils 6.6 Absolute Lymphocytes 1.3 Absolute Monocytes 0.9 Absolute Eosinophils 0.1 Absolute Basophils 0.0 Carbonic Acid 1.03 L HCO3/H2CO3 Ratio 23:1 ABG pH 7.48 H ABG pCO2 34.2 L ABG pO2 105.3 H ABG HCO3 24.7 ABG O2 Saturation 98.2 H ABG Base Excess 1.5 FiO2 40% Sodium 141.1 Potassium 3.3 L Chloride 106 Carbon Dioxide 26 Anion Gap 9 BUN 7 Creatinine 0.76 Est GFR ( Amer) > 60 Est GFR (Non-Af Amer) > 60 Glucose 103 Calcium 8.8 Magnesium 1.7 Total Bilirubin 0.7 AST 35 ALT 33 Alkaline Phosphatase 89 Total Protein 6.1 L Albumin 3.3 L 08/17/17 08/17/17 08/17/17 04:07 04:07 05:03 WBC 10.7 H RBC 3.33 L Hgb 10.5 L Hct 30.2 L MCV 91 MCH 31.6 MCHC 34.8 RDW 13.2 Plt Count 183 Seg Neutrophils % 81.9 H Lymphocytes % 9.9 L Monocytes % 7.9 Eosinophils % 0.1 Basophils % 0.2 Absolute Neutrophils 8.8 H Absolute Lymphocytes 1.1 Absolute Monocytes 0.8 Absolute Eosinophils 0.0 Absolute Basophils 0.0 Carbonic Acid 1.22 HCO3/H2CO3 Ratio 23:1 ABG pH 7.47 H ABG pCO2 40.4 ABG pO2 70.9 L ABG HCO3 28.5 H ABG O2 Saturation 95.1 ABG Base Excess 4.5 FiO2 40% Sodium 143.8 Potassium 3.0 L* Chloride 104 Carbon Dioxide 28 Anion Gap 12 BUN 10 Creatinine 0.76 Est GFR ( Amer) > 60 Est GFR (Non-Af Amer) > 60 Glucose 88 Calcium 8.6 Magnesium 1.5 L Total Bilirubin 1.1 AST 40 H ALT 34 Alkaline Phosphatase 81 Total Protein 5.9 L Albumin 3.3 L 04/30/17 04/30/17 04/30/17 13:49 13:49 18:48 Creatine Kinase 770 H 1060 H CK-MB (CK-2) 5.90 H Troponin I < 0.012 04/30/17 05/01/17 05/01/17 18:48 00:32 00:32 Creatine Kinase 976 H CK-MB (CK-2) 6.42 H 4.66 H Troponin I < 0.012 < 0.012 Impressions: Head CT 04/30/17 06:37 IMPRESSION: Motion artifact throughout the study. No major intracranial hemorrhage, mass effect or midline shift. Assessment & Plan - Diagnosis (1) Altered mental status Qualifiers: Altered mental status type: coma Coma depth: [place] coma 3-8 Coma timing : in the field (EMT or ambulance) Qualified Code(s): R40.2431 - [place] coma scale score 3-8, in the field [EMT or ambulance] Is this a current diagnosis for this admission?: Yes Plan: Continue slow wean from the sedating medications (2) Suicide attempt Is this a current diagnosis for this admission?: Yes Plan: Once extubated and weaned off the sedation will need a psychiatric evaluation (3) Pneumonia Qualifiers: Pneumonia type: due to unspecified organism Laterality: left Lung location: lower lobe of lung Qualified Code(s): J18.1 - Lobar pneumonia, unspecified organism Is this a current diagnosis for this admission?: Yes Plan: will add fortaz (4) Hypokalemia Is this a current diagnosis for this admission?: Yes Plan: jadyn lawson with Henri
[2017-05-03] MEDS: FAMOTIDINE INJ/PF 20 MG/2 ML SDV IV SCH ×2 (09:32→21:09)
--- NOTE | 2017-05-03 11:25 | PDOC PROGRESS REPORT ---
Subjective Progress Note for:: 05/03/17 Subjective:: 48 hours status post extubation disoriented and confused remains although she is less agitated Physical Exam Vital Signs: Temp Pulse Resp BP Pulse Ox 99.5 F 104 H 19 106/94 H 96 05/02/17 15:59 05/02/17 20:00 05/03/17 06:00 05/03/17 05:48 05/03/17 06:00 Intake & Output 05/02/17 05/03/17 05/04/17 06:59 06:59 06:59 Intake Total 3137 1984 Output Total 3208 5890 Balance -63 -0522 Weight 132.3 kg 126.1 kg General appearance: PRESENT: no acute distress, disheveled, morbidly obese, well -developed Head exam: PRESENT: atraumatic, normocephalic Eye exam: PRESENT: conjunctiva pale, EOMI Mouth exam: PRESENT: dry mucosa, neck supple, tongue midline Neck exam: ABSENT: carotid bruit, JVD, lymphadenopathy, thyromegaly Respiratory exam: PRESENT: decreased breath sounds, prolonged expiratory phas, rhonchi, symmetrical, unlabored Cardiovascular exam: PRESENT: RRR, +S1, +S2 Pulses: PRESENT: normal radial pulses GI/Abdominal exam: PRESENT: diminished bowel sounds, soft. ABSENT: distended, guarding, mass, organolmegaly, rebound, tenderness Rectal exam: PRESENT: deferred Gentrourinary exam: PRESENT: indwelling catheter Musculoskeletal exam: PRESENT: normal inspection Neurological exam: PRESENT: awake Skin exam: PRESENT: dry Results Laboratory Results: 05/03/17 04:07 05/03/17 04:07 05/02/17 05/02/17 05/02/17 04:58 06:40 06:40 WBC 9.0 RBC 3.57 L Hgb 11.4 L Hct 33.2 L MCV 93 MCH 31.9 MCHC 34.3 RDW 13.6 Plt Count 173 Seg Neutrophils % 73.7 Lymphocytes % 14.6 Monocytes % 10.2 Eosinophils % 1.1 Basophils % 0.4 Absolute Neutrophils 6.6 Absolute Lymphocytes 1.3 Absolute Monocytes 0.9 Absolute Eosinophils 0.1 Absolute Basophils 0.0 Carbonic Acid 1.03 L HCO3/H2CO3 Ratio 23:1 ABG pH 7.48 H ABG pCO2 34.2 L ABG pO2 105.3 H ABG HCO3 24.7 ABG O2 Saturation 98.2 H ABG Base Excess 1.5 FiO2 40% Sodium 141.1 Potassium 3.3 L Chloride 106 Carbon Dioxide 26 Anion Gap 9 BUN 7 Creatinine 0.76 Est GFR ( Amer) > 60 Est GFR (Non-Af Amer) > 60 Glucose 103 Calcium 8.8 Magnesium 1.7 Total Bilirubin 0.7 AST 35 ALT 33 Alkaline Phosphatase 89 Total Protein 6.1 L Albumin 3.3 L 05/03/17 05/03/17 05/03/17 04:07 04:07 05:03 WBC 10.7 H RBC 3.33 L Hgb 10.5 L Hct 30.2 L MCV 91 MCH 31.6 MCHC 34.8 RDW 13.2 Plt Count 183 Seg Neutrophils % 81.9 H Lymphocytes % 9.9 L Monocytes % 7.9 Eosinophils % 0.1 Basophils % 0.2 Absolute Neutrophils 8.8 H Absolute Lymphocytes 1.1 Absolute Monocytes 0.8 Absolute Eosinophils 0.0 Absolute Basophils 0.0 Carbonic Acid 1.22 HCO3/H2CO3 Ratio 23:1 ABG pH 7.47 H ABG pCO2 40.4 ABG pO2 70.9 L ABG HCO3 28.5 H ABG O2 Saturation 95.1 ABG Base Excess 4.5 FiO2 40% Sodium 143.8 Potassium 3.0 L* Chloride 104 Carbon Dioxide 28 Anion Gap 12 BUN 10 Creatinine 0.76 Est GFR ( Amer) > 60 Est GFR (Non-Af Amer) > 60 Glucose 88 Calcium 8.6 Magnesium 1.5 L Total Bilirubin 1.1 AST 40 H ALT 34 Alkaline Phosphatase 81 Total Protein 5.9 L Albumin 3.3 L 04/30/17 04/30/17 04/30/17 13:49 13:49 18:48 Creatine Kinase 770 H 1060 H CK-MB (CK-2) 5.90 H Troponin I < 0.012 04/30/17 05/01/17 05/01/17 18:48 00:32 00:32 Creatine Kinase 976 H CK-MB (CK-2) 6.42 H 4.66 H Troponin I < 0.012 < 0.012 Impressions: Head CT 04/30/17 06:37 IMPRESSION: Motion artifact throughout the study. No major intracranial hemorrhage, mass effect or midline shift. Assessment & Plan - Diagnosis (1) Pneumonia Qualifiers: Pneumonia type: due to unspecified organism Laterality: left Lung location: lower lobe of lung Qualified Code(s): J18.1 - Lobar pneumonia, unspecified organism Is this a current diagnosis for this admission?: Yes Plan: Retrocardiac air bronchograms 04/30 & 05/01 more consolidation retrocardiac opacification 05/02 per this observer (2) Respiratory failure Qualifiers: Chronicity: acute Respiratory failure complication: unspecified whether with hypoxia or hypercapnia Qualified Code(s): J96.00 - Acute respiratory failure, unspecified whether with hypoxia or hypercapnia Is this a current diagnosis for this admission?: Yes Plan: 4 L nasal cannula with adequate Oxygenating (3) Suicide attempt Is this a current diagnosis for this admission?: Yes - Time Critical Time spent with patient: 25-34 minutes
[2017-05-03] MEDS: POTASSI CL 20 MEQ/NS 1L 1,000 ML IV PRN (12:14)
[2017-05-03] MEDS: IPRATROPIUM/ALBUTEROL 0.5-2.5 MG/3 ML AMPUL NEB PRN (13:04)
[2017-05-03] MEDS: CEFTAZIDIME PENTAHYDRATE 2 GM in DEXTROSE 5%-WATER 100 ML IV SCH ×2 (13:23→21:17)
[2017-05-04 04:07] LABS: ABSOLUTE EOSINOPHILS # (AUTO) 0.1 10^3/uL (0.0-0.6); ABSOLUTE LYMPHOCYTES (AUTO) 1.1 10^3/uL (0.5-4.7); ABSOLUTE MONOCYTES (AUTO) 0.7 10^3/uL (0.1-1.4); ABSOLUTE NEUT (AUTO) 7.3 10^3/uL (1.7-8.2); BASOPHILS % (AUTO) 0.5 % (0-2); EOSINOPHILS % (AUTO) 0.7 % (0-6); HEMATOCRIT 31.2 % (36.0-47.0); HEMOGLOBIN 10.7 g/dL (12.0-15.5); HGB HCT DIFFERENCE 0.9; LYMPHOCYTES % (AUTO) 12.1 % (13-45); MEAN CORPUSCULAR HEMOGLOBIN 31.4 pg (27.0-33.4); MEAN CORPUSCULAR HGB CONC 34.3 g/dL (32.0-36.0); MEAN CORPUSCULAR VOLUME 92 fl (80-97); MONOCYTES % (AUTO) 7.7 % (3-13); RED CELL DISTRIBUTION WIDTH 13.4 % (11.5-14.0); WHITE BLOOD COUNT 9.3 10^3/uL (4.0-10.5)
[2017-05-04 04:26] LABS: ALANINE AMINOTRANSFERASE 38 U/L (9-52); ALBUMIN 3.4 g/dL (3.5-5.0); ALKALINE PHOSPHATASE 76 U/L (38-126); ANION GAP 10 (5-19); ASPARTATE AMINO TRANSFERASE 44 U/L (14-36); BILIRUBIN,DIRECT 0.5 mg/dL (0.0-0.4); BILIRUBIN,TOTAL 1.2 mg/dL (0.2-1.3); BLOOD UREA NITROGEN 15 mg/dL (7-20); CALCIUM 8.6 mg/dL (8.4-10.2); CARBON DIOXIDE 28 mmol/L (22-30); CHLORIDE 106 mmol/L (98-107); CREATININE RESULT 0.79 mg/dL (0.52-1.25); GLUCOSE 87 mg/dL (75-110); MAGNESIUM 1.7 mg/dL (1.6-2.3); POTASSIUM 3.9 mmol/L (3.6-5.0); SODIUM 143.6 mmol/L (137-145); TOTAL PROTEIN 6.2 g/dL (6.3-8.2)
[2017-05-04] MEDS: CEFTAZIDIME PENTAHYDRATE 2 GM in DEXTROSE 5%-WATER 100 ML IV SCH ×3 (05:06→21:14)
[2017-05-04] MEDS: CLINDAMYCIN 600 MG/D5W RTU 50 ML IV SCH ×3 (05:07→22:09)
[2017-05-04] MEDS: POTASSI CL 20 MEQ/NS 1L 1,000 ML IV PRN (05:08)
[2017-05-04] MEDS: OLANZAPINE INJ/PF 10 MG SDV IM SCH (05:08)
[2017-05-04 05:38] LABS: ARTERIAL BLOOD BASE EXCESS 2.1 mmol/L; ARTERIAL BLOOD O2 SATURATION 95.3 % (94-98)
--- NOTE | 2017-05-04 07:46 | RADIOLOGY REPORT (SQ) ---
EXAM DESCRIPTION: CHEST SINGLE VIEW COMPLETED DATE/TIME: 05/04/2017 5:59 am REASON FOR STUDY: resp failure COMPARISON: 05/03/2017. EXAM PARAMETERS: NUMBER OF VIEWS: One view. TECHNIQUE: Single frontal radiographic view of the chest acquired. RADIATION DOSE: NA LIMITATIONS: None. FINDINGS: LUNGS AND PLEURA: Mild interstitial markings. MEDIASTINUM AND HILAR STRUCTURES: No masses. Contour normal. HEART AND VASCULAR STRUCTURES: Normal cardiac silhouette. Atherosclerosis. BONES: No acute findings. HARDWARE: None in the chest. OTHER: No other significant finding. IMPRESSION: No significant interval change. TECHNICAL DOCUMENTATION: JOB ID: [id number]
[2017-05-04] MEDS: MELOXICAM 15 MG TABLET PO SCH (09:05)
[2017-05-04] MEDS: LEVOTHYROXINE SODIUM 0.025 MG TABLET PO SCH (09:06)
[2017-05-04] MEDS: DOCUSATE SODIUM 100 MG CAPSULE PO SCH (09:07)
[2017-05-04] MEDS: OLANZAPINE 5 MG TABLET PO SCH ×2 (09:08→21:14)
[2017-05-04] MEDS: LEVOTHYROXINE SODIUM 0.1 MG TABLET PO SCH (09:08)
[2017-05-04] MEDS: DULOXETINE HCL 30 MG CAPSULE.DR PO SCH ×2 (09:08→21:14)
--- NOTE | 2017-05-04 09:43 | PDOC PROGRESS REPORT ---
Subjective Progress Note for:: 05/04/17 Subjective:: The patient is awake and calm this morning. She is really upset about what happened. She is complaining of some aches and pains in her joints. She does admit to a suicidal attempt with ingestion of Ambien, tramadol and alcohol. She is willing to voluntarily be committed to a psychiatric facility. Physical Exam Vital Signs: Temp Pulse Resp BP Pulse Ox 100.2 F 80 17 136/73 H 95 05/04/17 08:00 05/04/17 09:36 05/04/17 09:36 05/04/17 08:28 05/04/17 08:28 Intake & Output 05/03/17 05/04/17 05/05/17 06:59 06:59 06:59 Intake Total 1984 2446 Output Total 5820 1345 150 Balance -3836 1101 -150 Weight 126.1 kg 129 kg General appearance: PRESENT: mild distress Head exam: PRESENT: atraumatic Eye exam: PRESENT: conjunctiva pink Neck exam: ABSENT: carotid bruit Respiratory exam: PRESENT: rhonchi Cardiovascular exam: PRESENT: RRR, +S1, +S2 Pulses: PRESENT: +1 pedal pulses bilateral Vascular exam: PRESENT: normal capillary refill GI/Abdominal exam: PRESENT: normal bowel sounds Extremities exam: PRESENT: tenderness Neurological exam: PRESENT: alert, awake Psychiatric exam: PRESENT: anxious, depressed, flat affect Results Laboratory Results: 05/04/17 03:41 05/04/17 03:41 05/04/17 05/04/17 05/04/17 03:41 03:41 05:15 WBC 9.3 RBC 3.40 L Hgb 10.7 L Hct 31.2 L MCV 92 MCH 31.4 MCHC 34.3 RDW 13.4 Plt Count 195 Seg Neutrophils % 79.0 H Lymphocytes % 12.1 L Monocytes % 7.7 Eosinophils % 0.7 Basophils % 0.5 Absolute Neutrophils 7.3 Absolute Lymphocytes 1.1 Absolute Monocytes 0.7 Absolute Eosinophils 0.1 Absolute Basophils 0.0 Carbonic Acid 1.04 L HCO3/H2CO3 Ratio 24:1 ABG pH 7.48 H ABG pCO2 34.5 L ABG pO2 70.1 L ABG HCO3 25.3 ABG O2 Saturation 95.3 ABG Base Excess 2.1 FiO2 ROOM AIR Sodium 143.6 Potassium 3.9 Chloride 106 Carbon Dioxide 28 Anion Gap 10 BUN 15 Creatinine 0.79 Est GFR ( Amer) > 60 Est GFR (Non-Af Amer) > 60 Glucose 87 Calcium 8.6 Magnesium 1.7 Total Bilirubin 1.2 AST 44 H ALT 38 Alkaline Phosphatase 76 Total Protein 6.2 L Albumin 3.4 L 05/01/17 07:45 Tracheal Aspirate Gram Stain - Final 05/01/17 07:45 Tracheal Aspirate Sputum Culture - Final REDUCED NORMAL LALA 04/30/17 04/30/17 04/30/17 13:49 13:49 18:48 Creatine Kinase 770 H 1060 H CK-MB (CK-2) 5.90 H Troponin I < 0.012 04/30/17 05/01/17 05/01/17 18:48 00:32 00:32 Creatine Kinase 976 H CK-MB (CK-2) 6.42 H 4.66 H Troponin I < 0.012 < 0.012 Impressions: Head CT 04/30/17 06:37 IMPRESSION: Motion artifact throughout the study. No major intracranial hemorrhage, mass effect or midline shift. Chest X-Ray 05/04/17 06:00 IMPRESSION: No significant interval change. Assessment & Plan - Diagnosis (1) Altered mental status Qualifiers: Altered mental status type: coma Coma depth: [place] coma 3-8 Coma timing : in the field (EMT or ambulance) Qualified Code(s): R40.2431 - [place] coma scale score 3-8, in the field [EMT or ambulance] Is this a current diagnosis for this admission?: Yes Plan: Improved with hydration. The patient is presently off any sedation except for as needed. All of her psychiatric medications have been restarted (2) Suicide attempt Is this a current diagnosis for this admission?: Yes Plan: Discussed the events of prior days. The patient is willing to voluntarily be hospitalized for treatment (3) Pneumonia Qualifiers: Pneumonia type: due to unspecified organism Laterality: left Lung location: lower lobe of lung Qualified Code(s): J18.1 - Lobar pneumonia, unspecified organism Is this a current diagnosis for this admission?: Yes Plan: Possibly aspiration due to unconscious state we will continue with IV antibiotics (4) Hypokalemia Is this a current diagnosis for this admission?: Yes Plan: Resolved we will DC IV fluids and start on and advance clear liquid diet
[2017-05-04] MEDS ORDERED: (PENDING PHARMACY ID) (Levothyroxine Sodium [Synthroid] 125 MCG) PO SCH (10:00)
--- NOTE | 2017-05-04 14:29 | PDOC PROGRESS REPORT ---
Subjective Progress Note for:: 05/04/17 Subjective:: awake lethargic alert much more cooperative Physical Exam Vital Signs: Temp Pulse Resp BP Pulse Ox 100.2 F 87 21 H 130/108 H 97 05/03/17 23:59 05/03/17 20:00 05/04/17 06:00 05/04/17 05:30 05/04/17 06:00 Intake & Output 05/03/17 05/04/17 05/05/17 06:59 06:59 06:59 Intake Total 1984 2446 Output Total 5820 1345 Balance -3836 1101 Weight 126.1 kg 129 kg General appearance: PRESENT: no acute distress, cooperative, disheveled, obese Head exam: PRESENT: atraumatic, normocephalic Eye exam: PRESENT: conjunctiva pale, EOMI Mouth exam: PRESENT: dry mucosa, neck supple, tongue midline Neck exam: ABSENT: carotid bruit, JVD, lymphadenopathy, thyromegaly Respiratory exam: PRESENT: decreased breath sounds, prolonged expiratory phas, rhonchi, symmetrical, unlabored Cardiovascular exam: PRESENT: RRR, +S1, +S2 Pulses: PRESENT: normal radial pulses GI/Abdominal exam: PRESENT: normal bowel sounds, soft. ABSENT: distended, guarding, mass, organolmegaly, rebound, tenderness Rectal exam: PRESENT: deferred Gentrourinary exam: PRESENT: indwelling catheter Musculoskeletal exam: PRESENT: normal inspection Neurological exam: PRESENT: awake Skin exam: PRESENT: dry, warm Results Laboratory Results: 05/04/17 03:41 05/04/17 03:41 05/04/17 05/04/17 05/04/17 03:41 03:41 05:15 WBC 9.3 RBC 3.40 L Hgb 10.7 L Hct 31.2 L MCV 92 MCH 31.4 MCHC 34.3 RDW 13.4 Plt Count 195 Seg Neutrophils % 79.0 H Lymphocytes % 12.1 L Monocytes % 7.7 Eosinophils % 0.7 Basophils % 0.5 Absolute Neutrophils 7.3 Absolute Lymphocytes 1.1 Absolute Monocytes 0.7 Absolute Eosinophils 0.1 Absolute Basophils 0.0 Carbonic Acid 1.04 L HCO3/H2CO3 Ratio 24:1 ABG pH 7.48 H ABG pCO2 34.5 L ABG pO2 70.1 L ABG HCO3 25.3 ABG O2 Saturation 95.3 ABG Base Excess 2.1 FiO2 ROOM AIR Sodium 143.6 Potassium 3.9 Chloride 106 Carbon Dioxide 28 Anion Gap 10 BUN 15 Creatinine 0.79 Est GFR ( Amer) > 60 Est GFR (Non-Af Amer) > 60 Glucose 87 Calcium 8.6 Magnesium 1.7 Total Bilirubin 1.2 AST 44 H ALT 38 Alkaline Phosphatase 76 Total Protein 6.2 L Albumin 3.4 L 05/01/17 07:45 Tracheal Aspirate Gram Stain - Final 05/01/17 07:45 Tracheal Aspirate Sputum Culture - Final REDUCED NORMAL LALA 04/30/17 04/30/17 04/30/17 13:49 13:49 18:48 Creatine Kinase 770 H 1060 H CK-MB (CK-2) 5.90 H Troponin I < 0.012 04/30/17 05/01/17 05/01/17 18:48 00:32 00:32 Creatine Kinase 976 H CK-MB (CK-2) 6.42 H 4.66 H Troponin I < 0.012 < 0.012 Impressions: Head CT 04/30/17 06:37 IMPRESSION: Motion artifact throughout the study. No major intracranial hemorrhage, mass effect or midline shift. Chest X-Ray 05/04/17 06:00 IMPRESSION: No significant interval change. Assessment & Plan - Diagnosis (1) Pneumonia Qualifiers: Pneumonia type: due to unspecified organism Laterality: left Lung location: lower lobe of lung Qualified Code(s): J18.1 - Lobar pneumonia, unspecified organism Is this a current diagnosis for this admission?: Yes Plan: Retrocardiac air bronchograms 04/30 & 05/01 more consolidation retrocardiac opacification 05/02 per this observer (2) Respiratory failure Qualifiers: Chronicity: acute Respiratory failure complication: unspecified whether with hypoxia or hypercapnia Qualified Code(s): J96.00 - Acute respiratory failure, unspecified whether with hypoxia or hypercapnia Is this a current diagnosis for this admission?: No (3) Suicide attempt Is this a current diagnosis for this admission?: Yes - Time Critical Time spent with patient: 25-34 minutes
--- NOTE | 2017-05-04 15:52 | RADIOLOGY REPORT (SQ) ---
EXAM DESCRIPTION: CHEST SINGLE VIEW COMPLETED DATE/TIME: 05/03/2017 6:39 am REASON FOR STUDY: resp fail COMPARISON: 05/02/2017, 05/01/2017, 04/30/2017 EXAM PARAMETERS: NUMBER OF VIEWS: One view. TECHNIQUE: Single frontal radiographic view of the chest acquired. RADIATION DOSE: NA LIMITATIONS: None. FINDINGS: LUNGS AND PLEURA: Minimal airspace disease in the right upper lobe is present worrisome fo r early or developing pneumonia. Left lung well inflated and clear. No pleural effusions or pneumothorax. MEDIASTINUM AND HILAR STRUCTURES: No masses. Contour normal. HEART AND VASCULAR STRUCTURES: Heart normal in size. Normal vasculature. BONES: No acute findings. HARDWARE: None in the chest. OTHER: No other significant finding. IMPRESSION: New right upper lobe airspace disease, worrisome for pneumonia. TECHNICAL DOCUMENTATION: JOB ID: [id number]
--- NOTE | 2017-05-04 15:53 | RADIOLOGY REPORT (SQ) ---
EXAM DESCRIPTION: CHEST SINGLE VIEW COMPLETED DATE/TIME: 05/03/2017 9:12 am REASON FOR STUDY: infiltrare COMPARISON: AP chest 05/03/2017, 618 hours EXAM PARAMETERS: NUMBER OF VIEWS: One view. TECHNIQUE: Single frontal radiographic view of the chest acquired. RADIATION DOSE: NA LIMITATIONS: None. FINDINGS: LUNGS AND PLEURA: Partial clearing of the right upper lobe airspace disease, minimal right -sided perihilar airspace disease persists. Question asymmetric pulmonary edema. No pleural effusions. No pneumothorax. Left lung clear. MEDIASTINUM AND HILAR STRUCTURES: No masses. Contour normal. HEART AND VASCULAR STRUCTURES: Heart normal in size. Normal vasculature. BONES: No acute findings. HARDWARE: None in the chest. OTHER: No other significant finding. IMPRESSION: Partial clearing of the right airspace disease compared to 0618 hours. Minimal right pe rihilar infiltrate persists. TECHNICAL DOCUMENTATION: JOB ID: [id number]
[2017-05-04] MEDS: BUPROPION HCL 100 MG TABLET PO SCH ×2 (16:47→21:14)
[2017-05-05] MEDS: BUPROPION HCL 100 MG TABLET PO SCH ×3 (05:49→22:22)
[2017-05-05] MEDS: CLINDAMYCIN 600 MG/D5W RTU 50 ML IV SCH ×3 (05:49→22:23)
[2017-05-05] MEDS: CEFTAZIDIME PENTAHYDRATE 2 GM in DEXTROSE 5%-WATER 100 ML IV SCH ×3 (05:49→22:23)
[2017-05-05] MEDS: LEVOTHYROXINE SODIUM 0.1 MG TABLET PO SCH (08:17)
[2017-05-05] MEDS: LEVOTHYROXINE SODIUM 0.025 MG TABLET PO SCH (08:17)
[2017-05-05] MEDS: OLANZAPINE 5 MG TABLET PO SCH ×2 (11:36→22:22)
[2017-05-05] MEDS: DOCUSATE SODIUM 100 MG CAPSULE PO SCH (11:36)
[2017-05-05] MEDS: MELOXICAM 15 MG TABLET PO SCH (11:36)
[2017-05-05] MEDS: DULOXETINE HCL 30 MG CAPSULE.DR PO SCH ×2 (11:37→22:22)
[2017-05-05] MEDS ORDERED: GLYCERIN (ADULT) SUPP.RECT PR PRN (15:15)
[2017-05-05] MEDS ORDERED: MAGNESIUM CITRATE 296 ML BOTTLE PO ONE (15:19)
--- NOTE | 2017-05-05 15:31 | PDOC PROGRESS REPORT ---
Subjective Progress Note for:: 05/05/17 Subjective:: Pt states that she is doing ok. Pt states that she has not had a bowel movement in 4-5 days. Nursing states that pt does not have DVT proph order. Physical Exam Vital Signs: Temp Pulse Resp BP Pulse Ox 97.6 F 78 20 138/72 H 96 05/05/17 11:40 05/05/17 11:40 05/05/17 11:40 05/05/17 11:40 05/05/17 11:40 Intake & Output 05/04/17 05/05/17 05/06/17 06:59 06:59 06:59 Intake Total 2446 910 Output Total 1345 2150 Balance 1101 -1240 Weight 129 kg 129 kg General appearance: PRESENT: no acute distress, well-developed, well-nourished Head exam: PRESENT: atraumatic, normocephalic Eye exam: PRESENT: conjunctiva pink, EOMI Mouth exam: PRESENT: moist, tongue midline Neck exam: ABSENT: carotid bruit, JVD, lymphadenopathy, thyromegaly Respiratory exam: PRESENT: clear to auscultation amanda. ABSENT: rales, rhonchi, wheezes Cardiovascular exam: PRESENT: RRR. ABSENT: diastolic murmur, rubs, systolic murmur Pulses: PRESENT: normal dorsalis pedis pul Vascular exam: PRESENT: normal capillary refill Extremities exam: PRESENT: full ROM. ABSENT: calf tenderness, clubbing, pedal edema Neurological exam: PRESENT: alert, awake, oriented to person, oriented to place , oriented to time, oriented to situation, CN II-XII grossly intact. ABSENT: motor sensory deficit Psychiatric exam: PRESENT: normal mood Skin exam: PRESENT: dry, warm Results Laboratory Results: 05/04/17 03:41 05/04/17 03:41 04/30/17 04/30/17 04/30/17 13:49 13:49 18:48 Creatine Kinase 770 H 1060 H CK-MB (CK-2) 5.90 H Troponin I < 0.012 04/30/17 05/01/17 05/01/17 18:48 00:32 00:32 Creatine Kinase 976 H CK-MB (CK-2) 6.42 H 4.66 H Troponin I < 0.012 < 0.012 Impressions: Head CT 04/30/17 06:37 IMPRESSION: Motion artifact throughout the study. No major intracranial hemorrhage, mass effect or midline shift. Chest X-Ray 05/04/17 06:00 IMPRESSION: No significant interval change. Assessment & Plan - Diagnosis (1) Altered mental status Qualifiers: Altered mental status type: coma Coma depth: [place] coma 3-8 Coma timing : in the field (EMT or ambulance) Qualified Code(s): R40.2431 - [place] coma scale score 3-8, in the field [EMT or ambulance] Is this a current diagnosis for this admission?: Yes Plan: Secondary to Suicide Attempt Most likely Ambien: Resolved. Will monitor. (2) Hypokalemia Is this a current diagnosis for this admission?: Yes Plan: Resolved. (3) Respiratory failure Qualifiers: Chronicity: acute Respiratory failure complication: unspecified whether with hypoxia or hypercapnia Qualified Code(s): J96.00 - Acute respiratory failure, unspecified whether with hypoxia or hypercapnia Is this a current diagnosis for this admission?: No Plan: Resolved. Pt is doing well. Will continue to monitor. (4) Pneumonia Qualifiers: Pneumonia type: due to unspecified organism Laterality: left Lung location: lower lobe of lung Qualified Code(s): J18.1 - Lobar pneumonia, unspecified organism Is this a current diagnosis for this admission?: Yes Plan: Suspected Aspiration Pneumonia: Will continue current antibiotics. Will deescalate tomorrow. (5) Constipation Is this a current diagnosis for this admission?: Yes Plan: Will write for Magnesium citrate and glycerin suppository. (6) Suicide attempt Is this a current diagnosis for this admission?: Yes Plan: Pt awaiting inpatient psych. - Time Time Spent with patient: Less than 15 minutes - Will remove urinary cunningham today
[2017-05-05] MEDS: HEPARIN SOD (PORCINE) 5,000 UNIT/ML 1 ML SYRINGE SUBCUT SCH (22:22)
[2017-05-06 04:33] LABS: ABSOLUTE EOSINOPHILS # (AUTO) 0.3 10^3/uL (0.0-0.6); ABSOLUTE LYMPHOCYTES (AUTO) 1.5 10^3/uL (0.5-4.7); ABSOLUTE MONOCYTES (AUTO) 0.5 10^3/uL (0.1-1.4); BASOPHILS % (AUTO) 0.7 % (0-2); HEMATOCRIT 31.3 % (36.0-47.0); HEMOGLOBIN 10.8 g/dL (12.0-15.5); HGB HCT DIFFERENCE 1.1; LYMPHOCYTES % (AUTO) 28.3 % (13-45); MEAN CORPUSCULAR HEMOGLOBIN 31.6 pg (27.0-33.4); MEAN CORPUSCULAR HGB CONC 34.5 g/dL (32.0-36.0); MEAN CORPUSCULAR VOLUME 92 fl (80-97); MONOCYTES % (AUTO) 9.6 % (3-13); RED BLOOD COUNT 3.41 10^6/uL (3.72-5.28); RED CELL DISTRIBUTION WIDTH 13.4 % (11.5-14.0); SEGMENTED NEUTROPHILS % (AUTO) 55.4 % (42-78); WHITE BLOOD COUNT 5.3 10^3/uL (4.0-10.5)
[2017-05-06 04:52] LABS: ALANINE AMINOTRANSFERASE 38 U/L (9-52); ALKALINE PHOSPHATASE 65 U/L (38-126); ANION GAP 9 (5-19); ASPARTATE AMINO TRANSFERASE 29 U/L (14-36); BILIRUBIN,DIRECT 0.5 mg/dL (0.0-0.4); BILIRUBIN,TOTAL 0.6 mg/dL (0.2-1.3); BLOOD UREA NITROGEN 13 mg/dL (7-20); CALCIUM 8.6 mg/dL (8.4-10.2); CARBON DIOXIDE 26 mmol/L (22-30); CHLORIDE 104 mmol/L (98-107); CREATININE RESULT 0.81 mg/dL (0.52-1.25); GLUCOSE 101 mg/dL (75-110); POTASSIUM 3.3 mmol/L (3.6-5.0); SODIUM 139.4 mmol/L (137-145); TOTAL PROTEIN 5.8 g/dL (6.3-8.2)
[2017-05-06] MEDS: HEPARIN SOD (PORCINE) 5,000 UNIT/ML 1 ML SYRINGE SUBCUT SCH ×3 (06:15→22:23)
[2017-05-06] MEDS: CEFTAZIDIME PENTAHYDRATE 2 GM in DEXTROSE 5%-WATER 100 ML IV SCH (06:15)
[2017-05-06] MEDS: CLINDAMYCIN 600 MG/D5W RTU 50 ML IV SCH (06:15)
[2017-05-06] MEDS: BUPROPION HCL 100 MG TABLET PO SCH ×3 (06:15→22:23)
[2017-05-06] MEDS ORDERED: GLYCERIN (ADULT) SUPP.RECT PR ONE (06:34)
[2017-05-06] MEDS ORDERED: POTASSIUM CHLORIDE 10 MEQ TABLET.SA PO ONE ×2 (07:25→15:24)
[2017-05-06] MEDS: LEVOTHYROXINE SODIUM 0.025 MG TABLET PO SCH (07:27)
[2017-05-06] MEDS: LEVOTHYROXINE SODIUM 0.1 MG TABLET PO SCH (07:28)
[2017-05-06] MEDS: MAGNESIUM SULFATE/D5W 1 GM/100 ML RTUPB IV SCH ×2 (07:54→10:06)
[2017-05-06] MEDS: DULOXETINE HCL 30 MG CAPSULE.DR PO SCH ×2 (10:07→22:23)
[2017-05-06] MEDS: OLANZAPINE 5 MG TABLET PO SCH ×2 (10:07→22:23)
[2017-05-06] MEDS ORDERED: MAGNESIUM SULFATE/D5W 1 GM/100 ML RTUPB IV ONE (10:07)
[2017-05-06] MEDS: DOCUSATE SODIUM 100 MG CAPSULE PO SCH (10:07)
[2017-05-06] MEDS: MELOXICAM 15 MG TABLET PO SCH (10:07)
--- NOTE | 2017-05-06 12:31 | PDOC PROGRESS REPORT ---
Subjective Progress Note for:: 05/06/17 Subjective:: Pt states that she had a good BM this morning. Physical Exam Vital Signs: Temp Pulse Resp BP Pulse Ox 97.8 F 84 16 129/77 H 93 05/06/17 12:04 05/06/17 12:04 05/06/17 12:04 05/06/17 12:04 05/06/17 12:04 Intake & Output 05/05/17 05/06/17 05/07/17 06:59 06:59 06:59 Intake Total 910 3087 Output Total 2150 2950 Balance -1240 137 Weight 129 kg 130 kg General appearance: PRESENT: no acute distress, well-developed, well-nourished Head exam: PRESENT: atraumatic, normocephalic Eye exam: PRESENT: conjunctiva pink, EOMI, PERRLA. ABSENT: scleral icterus Ear exam: PRESENT: normal external ear exam Mouth exam: PRESENT: moist Respiratory exam: PRESENT: clear to auscultation amanda. ABSENT: rales, rhonchi, wheezes Cardiovascular exam: PRESENT: RRR. ABSENT: diastolic murmur, rubs, systolic murmur GI/Abdominal exam: PRESENT: normal bowel sounds, soft. ABSENT: distended, guarding, mass, organolmegaly, rebound, tenderness Extremities exam: PRESENT: full ROM. ABSENT: calf tenderness, clubbing, pedal edema Musculoskeletal exam: PRESENT: full ROM Neurological exam: PRESENT: alert, awake, oriented to person, oriented to place , oriented to time, oriented to situation, CN II-XII grossly intact. ABSENT: motor sensory deficit Psychiatric exam: PRESENT: normal mood Skin exam: PRESENT: dry, warm Results Laboratory Results: 05/06/17 03:53 05/06/17 03:53 05/06/17 05/06/17 03:53 03:53 WBC 5.3 RBC 3.41 L Hgb 10.8 L Hct 31.3 L MCV 92 MCH 31.6 MCHC 34.5 RDW 13.4 Plt Count 214 Seg Neutrophils % 55.4 Lymphocytes % 28.3 Monocytes % 9.6 Eosinophils % 6.0 Basophils % 0.7 Absolute Neutrophils 3.0 Absolute Lymphocytes 1.5 Absolute Monocytes 0.5 Absolute Eosinophils 0.3 Absolute Basophils 0.0 Sodium 139.4 Potassium 3.3 L Chloride 104 Carbon Dioxide 26 Anion Gap 9 BUN 13 Creatinine 0.81 Est GFR ( Amer) > 60 Est GFR (Non-Af Amer) > 60 Glucose 101 Calcium 8.6 Total Bilirubin 0.6 AST 29 ALT 38 Alkaline Phosphatase 65 Total Protein 5.8 L Albumin 3.0 L 04/30/17 04/30/17 04/30/17 13:49 13:49 18:48 Creatine Kinase 770 H 1060 H CK-MB (CK-2) 5.90 H Troponin I < 0.012 04/30/17 05/01/17 05/01/17 18:48 00:32 00:32 Creatine Kinase 976 H CK-MB (CK-2) 6.42 H 4.66 H Troponin I < 0.012 < 0.012 Impressions: Head CT 04/30/17 06:37 IMPRESSION: Motion artifact throughout the study. No major intracranial hemorrhage, mass effect or midline shift. Chest X-Ray 05/04/17 06:00 IMPRESSION: No significant interval change. Assessment & Plan - Diagnosis (1) Altered mental status Qualifiers: Altered mental status type: coma Coma depth: [place] coma 3-8 Coma timing : in the field (EMT or ambulance) Qualified Code(s): R40.2431 - [place] coma scale score 3-8, in the field [EMT or ambulance] Is this a current diagnosis for this admission?: Yes Plan: Secondary to Suicide Attempt Most likely Ambien: Resolved. Will monitor. (2) Hypokalemia Is this a current diagnosis for this admission?: Yes Plan: Pt written for Potassium replacement. Will potassium check at 3 pm. Pt will get magnesium replacement. (3) Respiratory failure Qualifiers: Chronicity: acute Respiratory failure complication: unspecified whether with hypoxia or hypercapnia Qualified Code(s): J96.00 - Acute respiratory failure, unspecified whether with hypoxia or hypercapnia Is this a current diagnosis for this admission?: No Plan: Resolved. Pt is doing well. Will continue to monitor. (4) Pneumonia Qualifiers: Pneumonia type: due to unspecified organism Laterality: left Lung location: lower lobe of lung Qualified Code(s): J18.1 - Lobar pneumonia, unspecified organism Is this a current diagnosis for this admission?: Yes Plan: Suspected Aspiration Pneumonia: Will continue only PO Clindamycin for 3 days. (5) Constipation Qualifiers: Constipation type: chronic idiopathic constipation Qualified Code(s): K59.04 - Chronic idiopathic constipation Is this a current diagnosis for this admission?: Yes Plan: Resolved. Pt has had multiple BMs this morning. (6) Suicide attempt Is this a current diagnosis for this admission?: Yes Plan: Pt awaiting inpatient psych. - Time Time Spent with patient: 25-34 minutes
[2017-05-06] MEDS: CLINDAMYCIN HCL 150 MG CAPSULE PO SCH ×2 (14:15→22:23)
[2017-05-06] MEDS: IPRATROPIUM/ALBUTEROL 0.5-2.5 MG/3 ML AMPUL NEB PRN (15:33)
[2017-05-07] MEDS: LORAZEPAM INJ 2 MG/1 ML VIAL IV PRN (02:12)
[2017-05-07] MEDS: CLINDAMYCIN HCL 150 MG CAPSULE PO SCH ×3 (06:47→23:27)
[2017-05-07] MEDS: BUPROPION HCL 100 MG TABLET PO SCH ×3 (06:47→23:29)
[2017-05-07] MEDS: HEPARIN SOD (PORCINE) 5,000 UNIT/ML 1 ML SYRINGE SUBCUT SCH ×3 (06:47→23:30)
[2017-05-07 07:02] LABS: ANION GAP 8 (5-19); BLOOD UREA NITROGEN 16 mg/dL (7-20); CARBON DIOXIDE 26 mmol/L (22-30); CHLORIDE 105 mmol/L (98-107); GLUCOSE 93 mg/dL (75-110); MAGNESIUM 2.5 mg/dL (1.6-2.3); POTASSIUM 4.2 mmol/L (3.6-5.0); SODIUM 138.5 mmol/L (137-145)
[2017-05-07] MEDS: LEVOTHYROXINE SODIUM 0.025 MG TABLET PO SCH (08:15)
[2017-05-07] MEDS: LEVOTHYROXINE SODIUM 0.1 MG TABLET PO SCH (08:15)
[2017-05-07] MEDS: IPRATROPIUM/ALBUTEROL 0.5-2.5 MG/3 ML AMPUL NEB PRN ×2 (09:02→20:14)
[2017-05-07] MEDS: MELOXICAM 15 MG TABLET PO SCH (10:31)
[2017-05-07] MEDS: OLANZAPINE 5 MG TABLET PO SCH ×2 (10:31→23:29)
[2017-05-07] MEDS: DOCUSATE SODIUM 100 MG CAPSULE PO SCH (10:31)
[2017-05-07] MEDS: DULOXETINE HCL 30 MG CAPSULE.DR PO SCH ×2 (10:31→23:28)
--- NOTE | 2017-05-07 16:54 | PDOC PROGRESS REPORT ---
Subjective Progress Note for:: 05/07/17 Subjective:: The patient is doing much better. She denies any shortness of breath or cough. Long discussion about what has happened at home with her attempted suicide with medication overdose. Advised patient that she will need to be treated as an inpatient after discussing it with her psychiatrist. Will try to contact him as an outpatient. Physical Exam Vital Signs: Temp Pulse Resp BP Pulse Ox 98.2 F 79 19 121/55 L 96 05/07/17 11:41 05/07/17 11:41 05/07/17 11:41 05/07/17 11:41 05/07/17 16:00 Intake & Output 05/06/17 05/07/17 05/08/17 06:59 06:59 06:59 Intake Total 3087 1880 Output Total 2950 2900 Balance 137 -1020 Weight 130 kg 131.9 kg General appearance: PRESENT: no acute distress Head exam: PRESENT: atraumatic Eye exam: PRESENT: conjunctiva pink Neck exam: ABSENT: carotid bruit Respiratory exam: PRESENT: crackles, rhonchi Cardiovascular exam: PRESENT: RRR, +S1, +S2 Pulses: PRESENT: +1 pedal pulses bilateral GI/Abdominal exam: PRESENT: normal bowel sounds, soft Extremities exam: PRESENT: full ROM Musculoskeletal exam: PRESENT: ambulatory Neurological exam: PRESENT: alert, awake Psychiatric exam: PRESENT: anxious, depressed Results Laboratory Results: 05/06/17 03:53 05/07/17 05:53 05/07/17 05:53 Sodium 138.5 Potassium 4.2 Chloride 105 Carbon Dioxide 26 Anion Gap 8 BUN 16 Creatinine 0.90 Est GFR ( Amer) > 60 Est GFR (Non-Af Amer) > 60 Glucose 93 Calcium 9.0 Magnesium 2.5 H 04/30/17 04/30/17 04/30/17 13:49 13:49 18:48 Creatine Kinase 770 H 1060 H CK-MB (CK-2) 5.90 H Troponin I < 0.012 04/30/17 05/01/17 05/01/17 18:48 00:32 00:32 Creatine Kinase 976 H CK-MB (CK-2) 6.42 H 4.66 H Troponin I < 0.012 < 0.012 Impressions: Head CT 04/30/17 06:37 IMPRESSION: Motion artifact throughout the study. No major intracranial hemorrhage, mass effect or midline shift. Chest X-Ray 05/04/17 06:00 IMPRESSION: No significant interval change. Assessment & Plan - Diagnosis (1) Altered mental status Qualifiers: Altered mental status type: coma Coma depth: [place] coma 3-8 Coma timing : in the field (EMT or ambulance) Qualified Code(s): R40.2431 - [place] coma scale score 3-8, in the field [EMT or ambulance] Is this a current diagnosis for this admission?: Yes (2) Suicide attempt Is this a current diagnosis for this admission?: Yes Plan: Awaiting consultation from psychiatry (3) Pneumonia Qualifiers: Pneumonia type: due to unspecified organism Laterality: left Lung location: lower lobe of lung Qualified Code(s): J18.1 - Lobar pneumonia, unspecified organism Is this a current diagnosis for this admission?: Yes Plan: Much improved will switch to p.o. antibiotics (4) Hypokalemia Is this a current diagnosis for this admission?: Yes Plan: Resolved.
[2017-05-08] MEDS: CLINDAMYCIN HCL 150 MG CAPSULE PO SCH ×3 (06:27→22:39)
[2017-05-08] MEDS: BUPROPION HCL 100 MG TABLET PO SCH ×3 (06:27→22:39)
[2017-05-08] MEDS: HEPARIN SOD (PORCINE) 5,000 UNIT/ML 1 ML SYRINGE SUBCUT SCH ×3 (06:27→22:38)
[2017-05-08] MEDS: LEVOTHYROXINE SODIUM 0.025 MG TABLET PO SCH (07:40)
[2017-05-08] MEDS: LEVOTHYROXINE SODIUM 0.1 MG TABLET PO SCH (07:40)
[2017-05-08] MEDS: IPRATROPIUM/ALBUTEROL 0.5-2.5 MG/3 ML AMPUL NEB PRN (08:11)
--- NOTE | 2017-05-08 08:17 | PDOC PROGRESS REPORT ---
Subjective Progress Note for:: 05/08/17 Subjective:: The patient states to feel much better. She is willing to be hospitalized as an inpatient for further treatment. Discussed the recent events and attempted suicide with an overdose of Ambien and tramadol. Discussed the possibility of alcohol been associated with it Physical Exam Vital Signs: Temp Pulse Resp BP Pulse Ox 98.3 F 74 18 121/53 L 95 05/08/17 04:00 05/08/17 07:00 05/08/17 04:00 05/08/17 04:00 05/08/17 04:00 Intake & Output 05/07/17 05/08/17 05/09/17 06:59 06:59 06:59 Intake Total 1880 1910 Output Total 2900 1800 Balance -1020 110 Weight 131.9 kg 131.6 kg General appearance: PRESENT: no acute distress Head exam: PRESENT: atraumatic Eye exam: PRESENT: conjunctiva pink Neck exam: ABSENT: carotid bruit Respiratory exam: PRESENT: rhonchi Cardiovascular exam: PRESENT: RRR, +S1, +S2 Pulses: PRESENT: +1 pedal pulses bilateral Vascular exam: PRESENT: normal capillary refill GI/Abdominal exam: PRESENT: soft Extremities exam: PRESENT: full ROM Musculoskeletal exam: PRESENT: ambulatory Neurological exam: PRESENT: alert, awake Results Laboratory Results: 05/06/17 03:53 05/07/17 05:53 04/30/17 04/30/17 04/30/17 13:49 13:49 18:48 Creatine Kinase 770 H 1060 H CK-MB (CK-2) 5.90 H Troponin I < 0.012 04/30/17 05/01/17 05/01/17 18:48 00:32 00:32 Creatine Kinase 976 H CK-MB (CK-2) 6.42 H 4.66 H Troponin I < 0.012 < 0.012 Impressions: Head CT 04/30/17 06:37 IMPRESSION: Motion artifact throughout the study. No major intracranial hemorrhage, mass effect or midline shift. Chest X-Ray 05/04/17 06:00 IMPRESSION: No significant interval change. Assessment & Plan - Diagnosis (1) Altered mental status Qualifiers: Altered mental status type: coma Coma depth: [place] coma 3-8 Coma timing : in the field (EMT or ambulance) Qualified Code(s): R40.2431 - [place] coma scale score 3-8, in the field [EMT or ambulance] Is this a current diagnosis for this admission?: Yes Plan: Improved with hydration. The patient is presently off any sedation except for as needed. All of her psychiatric medications have been restarted (2) Suicide attempt Is this a current diagnosis for this admission?: Yes Plan: Discussed with the patient the inpatient versus outpatient psychiatric treatment. Psych consulted. Discharge planning consulted (3) Pneumonia Qualifiers: Pneumonia type: due to unspecified organism Laterality: left Lung location: lower lobe of lung Qualified Code(s): J18.1 - Lobar pneumonia, unspecified organism Is this a current diagnosis for this admission?: Yes Plan: Much improved will switch to p.o. antibiotics (4) Hypokalemia Is this a current diagnosis for this admission?: Yes
[2017-05-08] MEDS: DOCUSATE SODIUM 100 MG CAPSULE PO SCH (10:25)
[2017-05-08] MEDS: OLANZAPINE 5 MG TABLET PO SCH ×2 (10:25→22:39)
[2017-05-08] MEDS: MELOXICAM 15 MG TABLET PO SCH (10:25)
[2017-05-08] MEDS: DULOXETINE HCL 30 MG CAPSULE.DR PO SCH ×2 (10:26→22:38)
--- NOTE | 2017-05-08 14:37 | PSYCHOLOGICAL NOTE ---
Psych Note - Psych Note Psych Note: Patient is a 62-year-old female who has been admitted to since April 30 due to intentional overdose as attempt of suicide. Patient was intubated and admitted into ICU until she was extubated around the . Initial psychiatric consult was placed 05/07/17. Patient was seen today on the floor in room 404. Patient states she has never attempted suicide in the past and does not know what "got into me." Patient states her has been extremely needy due to multiple illnesses over the past year. She states between his change in disposition and her sick dog whose dying from kidney failure, it was "too much." Patient acknowledges her stressors were still be present upon discharge, but states she wants to go home to her and her dog. Patient denies current suicidal ideations. Patient states it was the biggest mistake of her life, and has taken the opportunity to apologized to multiple individuals. Patient also acknowledges she has been drinking excessive amounts of cinnamon whiskey and consumes roughly 1 gallon per week. Patient states she mixes the liquor with soda and that this is an increase in frequency for her. Patient reports she has talked with her and her daughter and feel it would be important to follow-up with an outpatient provider for therapy, marital therapy, and medication management. Patient states she does not want to go to an inpatient psychiatric facility. She states she has been inpatient twice in the past, once around 2010 to [facility] for medication management, and the other due to suicidal ideations (no attempt) many years ago. Patient reports she has a therapist she has seen on and off for 10+ years. She states she recently started back and was honest with her in regards to her alcohol consumption and the recent increase. Patient reports she would be willing to go to a psychiatric facility if that is what was recommended; however, states she prefers to return home to care for her dog, be with her , and start outpatient therapy. Patient states with her current provider she feels as though she is "part of a cattle heard being her did in and out as quickly as possible." Patient reports she gets into the office, listens to her providers problems, has a continuation of her medications and leaves. Discussed with patient alternatives to include voicing her concerns and speaking up in regards to her medications and treatments, as well as changing providers altogether. Patient reports in the past she and her both have gone through [facility] and she would like to return they are to resume services. Patient provides verbal consent to speak with her . Patient denies suicidal/homicidal ideations, intent, plan, means. , [place]ger, [phone]: States, "I prefer she not go inpatient." Has been reports he is not concerned for her safety, despite the current episode. He states they have had some good conversations together and also with their daughter and feels they would be best served by going to counseling. reports he feels comfortable with patient discharging home and is in agreement to provide her emotional space, but also encourage her to follow-up. Patient is alert and oriented 4. Mood is euthymic with normal/smiling affect. Patient denies suicidal/homicidal ideations. Patient does acknowledge she was attempting by suicide when she ingested the pills. Patient denies A/ VH; delusions not noted. Thought processes were rational, and linear. Conversational speech was within normal limits for prosody. Intellectual abilities were estimated within average range. Attention and focus were good. Insight, judgment, impulse control are fair. Major depressive disorder, recurrent R/O alcohol use disorder Patient is psychiatrically cleared for discharge. Patient is recommended to follow-up with an outpatient provider of her choice for medication management as well as outpatient therapy. Patient has verbalized she would prefer to change providers, therefore, an appointment has been scheduled on her behalf with [facility] May 10 at 1630. Patient and reports they prefer she returned home and follow-up with a provider. Patient does not meet involuntary commitment status per [place] GS1 to 2C as she denies suicidal ideations at this time. Patient further acknowledges that her excessive alcohol intake was a factor the night she ingested the pills , as well as leading up to the incident. Patient reports she is unsure if her medication is working properly; however, states she would like to continue with her current medications sans alcohol and to reassess with a doctor upon discharge. is in agreement with this plan of care and states it is what he prefers as well. I consulted with Dr. Chavira in regards to the care and management of this patient. Admitted provider notified and made aware of disposition and recommendations.
[2017-05-09] MEDS: CLINDAMYCIN HCL 150 MG CAPSULE PO SCH ×2 (06:45→14:34)
[2017-05-09] MEDS: BUPROPION HCL 100 MG TABLET PO SCH ×2 (06:45→14:34)
[2017-05-09] MEDS: HEPARIN SOD (PORCINE) 5,000 UNIT/ML 1 ML SYRINGE SUBCUT SCH ×2 (06:46→14:36)
[2017-05-09] MEDS ORDERED: ALBUTEROL SULFATE HFA (90 MCG/PUFF) 200 PUFF/8.5 GM MDI IH PRN (07:53)
--- NOTE | 2017-05-09 08:01 | PDOC DISCHARGE SUMMARY ---
General - Admit/Disc Date/PCP Admission Date/Primary Care Provider: 04/30/17 10:00 BABAR JAIME, Discharge Date: 05/09/17 - Discharge Diagnosis (1) Altered mental status Is this a current diagnosis for this admission?: Yes (2) Suicide attempt Is this a current diagnosis for this admission?: Yes Summary: The patient has been seen by the psychologist and deemed safe to be discharge without any involuntary commitments on medications to be followed as an outpatient (3) Pneumonia Is this a current diagnosis for this admission?: Yes Summary: Most probably related to unconscious state and aspiration. We will continue with clindamycin for another week (4) Hypokalemia Is this a current diagnosis for this admission?: Yes - Additional Information Resuscitation Status: Full Code Discharge Diet: As Tolerated Discharge Activity: Activity As Tolerated Home Medications: Bupropion HCl [Wellbutrin Xl 300mg 24hr Tablet] 1 tab PO DAILY 04/30/17 Diltiazem HCl [Diltiazem 24Hr ER] 180 mg PO DAILY 04/30/17 Docusate Sodium [Colace 100 mg Capsule] 100 mg PO DAILY 04/30/17 Duloxetine HCl [Cymbalta] 60 mg PO BID 04/30/17 Levothyroxine Sodium [Synthroid] 125 mcg PO DAILY 04/30/17 Losartan/Hydrochlorothiazide [Hyzaar 50-12.5 Tablet] 1 each PO DAILY 04/30/17 Melatonin 10 mg PO QHS 04/30/17 Meloxicam [Mobic 15 mg Tablet] 15 mg PO DAILY 04/30/17 Metformin HCl [Metformin HCl ER] 500 mg PO QHS 04/30/17 Simvastatin 40 mg PO QHS 04/30/17 Zolpidem Tartrate [Ambien] 10 mg PO QHS 04/30/17 Albuterol Sulfate [Proair HFA Inhalation Aerosol 8.5 gm MDI] 2 puff IH Q6HP PRN #1 hfa.aer.ad 05/09/17 Clindamycin HCl [Cleocin 150 mg Capsule] 300 mg PO Q8 #20 capsule 05/09/17 Olanzapine [Zyprexa 5 mg Tablet] 5 mg PO Q12 #60 tablet 05/09/17 History of Present Illness History of Present Illness: The patient is a 62-year-old white female with past medical history of hypertension and SVT who apparently was found this morning by her knee as a computer unresponsive. EMS was called and patient was brought into the emergency room where she was evaluated found to be in distress and was intubated. The patient does have a history of SVT and hypertension. Hospital Course Hospital Course: The patient did well after the admission she was intubated and heavily sedated. She was found to have a infiltrate most probably related to aspiration. She was successfully extubated after a couple of days. She had to be kept sedated. She was started on antipsychotics. She eventually became much more manageable. Once the medications were out of her system he did quite well. She was seen by the psychologist and recommended outpatient therapy Physical Exam Vital Signs: Temp Pulse Resp BP Pulse Ox 98.3 F 83 20 125/56 L 100 05/09/17 00:00 05/09/17 00:00 05/09/17 00:00 05/09/17 00:00 05/09/17 00:00 Intake & Output 05/08/17 05/09/17 05/10/17 06:59 06:59 06:59 Intake Total 1910 1530 Output Total 1800 2300 Balance 110 -770 Weight 131.6 kg General appearance: PRESENT: no acute distress Head exam: PRESENT: atraumatic Eye exam: PRESENT: conjunctiva pink Neck exam: ABSENT: carotid bruit Respiratory exam: PRESENT: rhonchi Cardiovascular exam: PRESENT: RRR, +S1, +S2 Pulses: PRESENT: +1 pedal pulses bilateral GI/Abdominal exam: PRESENT: soft Extremities exam: PRESENT: full ROM Musculoskeletal exam: PRESENT: ambulatory Neurological exam: PRESENT: awake Results Laboratory Results: 05/06/17 03:53 05/07/17 05:53 04/30/17 04/30/17 04/30/17 13:49 13:49 18:48 Creatine Kinase 770 H 1060 H CK-MB (CK-2) 5.90 H Troponin I < 0.012 04/30/17 05/01/17 05/01/17 18:48 00:32 00:32 Creatine Kinase 976 H CK-MB (CK-2) 6.42 H 4.66 H Troponin I < 0.012 < 0.012 Impressions: Head CT 04/30/17 06:37 IMPRESSION: Motion artifact throughout the study. No major intracranial hemorrhage, mass effect or midline shift. Chest X-Ray 05/04/17 06:00 IMPRESSION: No significant interval change. Plan Discharge Plan: We will discharge home
[2017-05-09] MEDS: LEVOTHYROXINE SODIUM 0.025 MG TABLET PO SCH (08:02)
[2017-05-09] MEDS: LEVOTHYROXINE SODIUM 0.1 MG TABLET PO SCH (08:02)
[2017-05-09] MEDS: MELOXICAM 15 MG TABLET PO SCH (09:42)
[2017-05-09] MEDS: DULOXETINE HCL 30 MG CAPSULE.DR PO SCH (09:43)
[2017-05-09] MEDS: OLANZAPINE 5 MG TABLET PO SCH (09:43)
[2017-05-09] MEDS: DOCUSATE SODIUM 100 MG CAPSULE PO SCH (09:43)
[2017-05-09 12:48] VITALS: BP 108/66
== END 2017-05-09 15:54 | disposition home or self-care (01) | DRG 208 ==
LOC: ER 06:17 → UNDOADMIN 09:31 → EH 09:31 → ICU 11:10 → 4N 05-04 10:34
PROVIDERS: ADMIT Internal Medicine; ATTEND Internal Medicine
PROC: 0BH17EZ Insertion of Endotracheal Airway into Trachea, Via Natural or Artificial Opening (ICD-10-PCS; principal; 2017-04-30)
PROC: 5A1945Z Respiratory Ventilation, 24-96 Consecutive Hours (ICD-10-PCS; 2017-04-30)
DX: J96.01 Acute respiratory failure with hypoxia (principal); J69.0 Pneumonitis due to inhalation of food and vomit; J96.02 Acute respiratory failure with hypercapnia; E87.6 Hypokalemia; T14.91 Suicide attempt; I10 Essential (primary) hypertension; E78.5 Hyperlipidemia, unspecified; E03.9 Hypothyroidism, unspecified; F32.9 Major depressive disorder, single episode, unspecified; M19.90 Unspecified osteoarthritis, unspecified site; Z79.899 Other long term (current) drug therapy; Z88.2 Allergy status to sulfonamides
CPT/HCPCS: 36415; 36600; 70450; 71010; 80048; 80053; 80307; 81001; 82550; 82553; 82803; 82962; 83605; 83735; 84100; 84132; 84478; 84484; 85025; 85610; 87040; 87070; 87086; 87205; 93005; 93010; 94002; 94003; 94640; 94799; 99291; J0330; J0713; J1100; J1644; J1650; J1940; J1956; J2060; J2250; J2704; J3010; J3475; J3480; J3490; J7030; J7620; S0028

== ENCOUNTER → 2017-10-26 | Outpatient (CLI) | payer MEDICARE, OTHER ==
[2017-10-26 13:51] LABS: ABSOLUTE EOSINOPHILS # (AUTO) 0.2 10^3/uL (0.0-0.6); ABSOLUTE LYMPHOCYTES (AUTO) 1.6 10^3/uL (0.5-4.7); ABSOLUTE MONOCYTES (AUTO) 0.4 10^3/uL (0.1-1.4); ABSOLUTE NEUT (AUTO) 4.1 10^3/uL (1.7-8.2); BASOPHILS % (AUTO) 0.4 % (0-2); EOSINOPHILS % (AUTO) 2.9 % (0-6); HEMATOCRIT 39.9 % (36.0-47.0); HEMOGLOBIN 13.6 g/dL (12.0-15.5); MEAN CORPUSCULAR HEMOGLOBIN 30.8 pg (27.0-33.4); MEAN CORPUSCULAR HGB CONC 34.1 g/dL (32.0-36.0); MEAN CORPUSCULAR VOLUME 90 fl (80-97); MONOCYTES % (AUTO) 6.5 % (3-13); PLATELET COUNT 235 10^3/uL (150-450); RED BLOOD COUNT 4.42 10^6/uL (3.72-5.28); RED CELL DISTRIBUTION WIDTH 13.7 % (11.5-14.0); SEGMENTED NEUTROPHILS % (AUTO) 64.2 % (42-78); TOTAL CELLS COUNTED % (AUTO) 100 %; WHITE BLOOD COUNT 6.3 10^3/uL (4.0-10.5)
[2017-10-26 14:15] LABS: ALANINE AMINOTRANSFERASE 38 U/L (9-52); ALBUMIN 4.5 g/dL (3.5-5.0); ALKALINE PHOSPHATASE 107 U/L (38-126); ANION GAP 11 (5-19); ASPARTATE AMINO TRANSFERASE 27 U/L (14-36); BILIRUBIN,DIRECT 0.6 mg/dL (0.0-0.4); BLOOD UREA NITROGEN 18 mg/dL (7-20); CALCIUM 9.7 mg/dL (8.4-10.2); CARBON DIOXIDE 27 mmol/L (22-30); CHLORIDE 101 mmol/L (98-107); CHOLESTEROL 133.85 mg/dL (0-200); GLUCOSE 114 mg/dL (75-110); POTASSIUM 3.9 mmol/L (3.6-5.0); SODIUM 139.4 mmol/L (137-145); TOTAL PROTEIN 7.4 g/dL (6.3-8.2); TRIGLYCERIDES 120 mg/dL (<150)
[2017-10-26 14:34] LABS: DIRECT LDL 44 mg/dL (<100)
[2017-10-26 14:41] LABS: FREE T3 3.16 pg/mL (2.77-5.27); FREE T4 (FREE THYROXINE) 1.41 ng/dL (0.78-2.19)
[2017-10-26 14:55] LABS: THYROID STIMULATING HORMONE 3.1 uIU/mL (0.47-4.68)
== END ==
LOC: OD 12:32
PROVIDERS: ATTEND Internal Medicine
DX: I10 Essential (primary) hypertension (principal); R73.9 Hyperglycemia, unspecified; E83.42 Hypomagnesemia; M19.90 Unspecified osteoarthritis, unspecified site; F43.20 Adjustment disorder, unspecified
CPT/HCPCS: 36415; 80053; 80061; 83036; 83735; 84439; 84443; 84481; 85025

== ENCOUNTER → 2018-02-07 | Outpatient (CLI) | payer MEDICARE, OTHER ==
[~2018-02-07] MED LIST: REGADENOSON INJ 0.4 MG/5 ML DISP.SYRIN IV ONE
--- NOTE | 2018-02-07 18:05 | DRAGON STRESS TEST REPORT ---
INTRAVENOUS LEXISCAN CARDIOLITE STRESS TEST USING SINGLE PHOTON EMMISION COMPUTERIZED TOMOGRAPHIC. DATE OF PROCEDURE: February 07, 2018, INDICATION : Supraventricular tachycardia, preop cardiovascular examination CARDIAC RISK FACTORS: Diabetes, hypertension, dyslipidemia, family history of IA RESTING EKG: Sinus rhythm, without any baseline ST-T wave changes STRESS EKG: No significant ST segment changes noted with LexiScan bolus REASON FOR TERMINATION: Protocol. PROCEDURE REPORT: Baseline heart rate 80 beats per minute with blood pressure of 123/65. Patient had no significant complaints. Patient was bolused with Lexiscan 0.4 mg intravenously followed by saline bolus. Heart rate at 2 minutes post bolus 87 with a blood pressure of 133/52. 3 minutes post bolus heart rate 83 with blood pressure of 124/70. No significant EKG changes were noted. Patient had no significant complaints during the procedure or postprocedure. Patient injected with Aminophyllin 75 mg at 3 minutes or later after Lexiscan bolus. CONCLUSIONS: Normal EKG and hemodynamic response to IV LexiScan. NUCLEAR DATA: At rest the patient was given 16.09 millicuries of technetium 99 sestamibi injected intravenously. As per protocol rest gated SPECT images were obtained. On day of stress test, the patient was given intravenous LexiScan at a dose of 0.4 mg in 5 mL intravenously, followed by flush with normal saline. Subsequently the stress dose of 47.1 millicuries of technetium 99 sestamibi was injected intravenously. As per protocol stress gated images were obtained. NUCLEAR INTERPRETATION: Both raw and processed data were used for interpretation. Visual, qualitative, computer-generated quantitative data was used. There was good myocardial uptake of technetium compound. Motion artifact and soft tissue attenuations were noted. Increased visceral uptake was noted. No definitive areas of transient perfusion defect noted, No definitive areas of fixed perfusion defect or scars noted. EKG gated imaging showed LV EF at 70 %, rest and stress gated EF similar visually. T. I D. ratio was 1.14. Lung heart ratio noted to be within normal limits 0.36. No significant extracardiac and abnormal radiotracer activities were noted. RV free wall uptake was noted to be WNL. IMPRESSION: Also refer to comments under nuclear interpretation. Also test results needs to be interpreted in the context of pretest probability. 1. No definitive areas of transient perfusion defect noted. 2. There is no definitive scintigraphic evidence of myocardial infarction/scar. 3. EKG gated imaging shows left ventricular ejection fraction of approx. 70 %. 4. Clinical correlation requested as occasionally single vessel disease or balanced ischemia could be missed. In approximately 10% of the cases Lexiscan may not cause adequate vasodilatory stress. RECOMMENDATIONS: Aggressive risk factor modification and medical management. Further evaluation may be needed if continued symptoms or other high risk indicators are noted on clinical evaluation. Close cardiology follow-up is also recommended. Clinical correlation with echocardiogram derived ejection fraction. Inability to exercise by itself can lead to increased cardiovascular event risks. Consider cardiology consultation and or follow-up if clinically indicated. I am available for cardiology evaluation and consultation if requested by the primary mill roller, unless patient already has a correctional probation officer. YAMILE
--- NOTE | 2018-02-07 19:21 | XCELERA REPORT ---
[address] [address] Transthoracic Echocardiogram Report Name: IRA VALLEJO Age: 62 yrs Gender: Female : 1955 Patient Status: Outpatient Patient Location: [facility] Study Date: 02/07/2018 09:17 AM Height: 66 in Weight: 287 lb BSA: 2.3 m2 Procedure: A complete two-dimensional transthoracic echocardiogram was performed (2D, M-mode, spectral and color flow Doppler). The study was technically difficult with many images being suboptimal in quality. Reason For Study: ATHEROSCLEROSIS OF AORTA Ordering Physician: BABAR JAIME Performed By: Lance Greenfield Interpretation Summary The left ventricular ejection fraction is preserved. Doppler measurements suggest impaired left ventricular relaxation, which is associated with grade I/IV or mild diastolic dysfunction Regional wall motion abnormalities cannot be excluded due to limited visualization. Borderline right ventricular enlargement. Right ventricular function cannot be assessed due to poor image quality. Borderline right atrial enlargement. The left atrial size is normal. There is no mitral valve stenosis. There is a trace amount of mitral regurgitation There is no aortic valve stenosis No aortic regurgitation is present. There is no tricuspid stenosis. There is a trace or physiologic amount of tricuspid regurgitation The aortic root is not well visualized. The inferior vena cava was not well visualized There is no pericardial effusion. MMode/2D Measurements & Calculations RVDd: 3.6 cm LVIDd: 4.1 cm FS: 31.6 % Ao root diam: 3.2 cm IVSd: 1.0 cm LVIDs: 2.8 cm EDV(Teich): 73.2 ml LVPWd: 1.0 cm ESV(Teich): 29.2 ml Ao root area: 7.9 cm2 EF(Teich): 60.1 % LA dimension: 2.8 cm Doppler Measurements & Calculations MV E max radha: MV P1/2t max radha: Ao V2 max: LV V1 max P.7 cm/sec 122.6 cm/sec 165.2 cm/sec 9.8 mmHg MV A max radha: MV P1/2t: 47.5 msec Ao max PG: LV V1 max: 104.1 cm/sec 10.9 mmHg 156.3 cm/sec MV E/A: 0.95 MVA(P1/2t): 4.6 cm2 MV dec slope: 755.3 cm/sec2 MV dec time: 0.23 sec PA V2 max: 88.8 cm/sec PA max P.2 mmHg Left Ventricle The left ventricle is grossly normal size. There is mild concentric left ventricular hypertrophy. The left ventricular ejection fraction is preserved. Doppler measurements suggest impaired left ventricular relaxation, which is associated with grade I/IV or mild diastolic dysfunction. Regional wall motion abnormalities cannot be excluded due to limited visualization. Right Ventricle Borderline right ventricular enlargement. Right ventricular function cannot be assessed due to poor image quality. Atria Borderline right atrial enlargement. The left atrial size is normal. Interarterial septum not well visualized and not well dopplered. Cannot comment on ASD/PFO presence. Mitral Valve The mitral valve is grossly normal. There is no mitral valve stenosis. There is a trace amount of mitral regurgitation. Aortic Valve The aortic valve is not well visualized secondary to technical limitations. The aortic valve opens well. There is no aortic valve stenosis. No aortic regurgitation is present. Tricuspid Valve The tricuspid valve is not well visualized secondary to technical limitations. There is no tricuspid stenosis. There is a trace or physiologic amount of tricuspid regurgitation. Pulmonic Valve The pulmonic valve is not well visualized. Great Vessels The aortic root is not well visualized. The inferior vena cava was not well visualized. Effusions There is no pericardial effusion. : BABAR JAIME > Sho Hopson
== END ==
LOC: RAD 06:31
PROVIDERS: ATTEND Internal Medicine
DX: I10 Essential (primary) hypertension (principal); I47.1 Supraventricular tachycardia; I70.0 Atherosclerosis of aorta; Z01.818 Encounter for other preprocedural examination
CPT/HCPCS: 93306; 93017; 78452; A9500; J2785; Q9969

== ENCOUNTER → 2018-02-12 | Outpatient (CLI) | payer MEDICARE, OTHER ==
--- NOTE | 2018-02-12 17:08 | RADIOLOGY REPORT (SQ) ---
EXAM DESCRIPTION: CHEST PA/LATERAL COMPLETED DATE/TIME: 02/12/2018 5:00 pm REASON FOR STUDY: PRE-OP COMPARISON: 05/04/2017. EXAM PARAMETERS: NUMBER OF VIEWS: two views TECHNIQUE: Digital Frontal and Lateral radiographic views of the chest acquired. RADIATION DOSE: NA LIMITATIONS: none FINDINGS: LUNGS AND PLEURA: No opacities, masses or pneumothorax. No pleural effusion. MEDIASTINUM AND HILAR STRUCTURES: No masses or contour abnormalities. HEART AND VASCULAR STRUCTURES: Heart normal size. No evidence for failure. BONES: No acute findings. HARDWARE: None in the chest. OTHER: No other significant finding. IMPRESSION: NO SIGNIFICANT RADIOGRAPHIC FINDING IN THE CHEST. TECHNICAL DOCUMENTATION: JOB ID: [id number] [employer]- All Rights Reserved Reading location - IP/workstation name: [email or web address]
[2018-02-12 18:36] LABS: ABSOLUTE EOSINOPHILS # (AUTO) 0.1 10^3/uL (0.0-0.6); ABSOLUTE LYMPHOCYTES (AUTO) 1.3 10^3/uL (0.5-4.7); ABSOLUTE MONOCYTES (AUTO) 0.6 10^3/uL (0.1-1.4); ABSOLUTE NEUT (AUTO) 4.9 10^3/uL (1.7-8.2); BASOPHILS % (AUTO) 0.7 % (0-2); HEMATOCRIT 40.2 % (36.0-47.0); HEMOGLOBIN 13.8 g/dL (12.0-15.5); LYMPHOCYTES % (AUTO) 19.1 % (13-45); MEAN CORPUSCULAR HEMOGLOBIN 31.2 pg (27.0-33.4); MEAN CORPUSCULAR HGB CONC 34.3 g/dL (32.0-36.0); MEAN CORPUSCULAR VOLUME 91 fl (80-97); PLATELET COUNT 252 10^3/uL (150-450); RED BLOOD COUNT 4.42 10^6/uL (3.72-5.28); RED CELL DISTRIBUTION WIDTH 13.2 % (11.5-14.0); SEGMENTED NEUTROPHILS % (AUTO) 70.2 % (42-78); TOTAL CELLS COUNTED % (AUTO) 100 %
[2018-02-12 18:38] LABS: APPEARANCE,URINE CLOUDY; BILIRUBIN,URINE SMALL (NEGATIVE); COLOR,URINE AMBER; GLUCOSE, URINE NEGATIVE (NEGATIVE); KETONES,URINE NEGATIVE (NEGATIVE); LEUKOCYTE ESTERASE,URINE SMALL (NEGATIVE); NITRITE,URINE NEGATIVE (NEGATIVE); PROTEIN,URINE NEGATIVE (NEGATIVE); URINE SPECIFIC GRAVITY 1.028
[2018-02-12 18:44] LABS: ANION GAP 13 (5-19); BLOOD UREA NITROGEN 27 mg/dL (7-20); CALCIUM 9.7 mg/dL (8.4-10.2); CARBON DIOXIDE 27 mmol/L (22-30); CHLORIDE 102 mmol/L (98-107); GLUCOSE 104 mg/dL (75-110); POTASSIUM 4.3 mmol/L (3.6-5.0); SODIUM 141.5 mmol/L (137-145)
--- NOTE | 2018-02-12 23:34 | EKG REPORT ---
SEVERITY:- BORDERLINE ECG - SINUS RHYTHM LVH BY VOLTAGE : Confirmed by: Sho Hopson 12-Feb-2018 23:34:03
== END ==
LOC: OD 16:14
PROVIDERS: ATTEND Orthopaedic Surgery
DX: Z01.818 Encounter for other preprocedural examination (principal); E11.9 Type 2 diabetes mellitus without complications
CPT/HCPCS: 36415; 71046; 80048; 81001; 83036; 85025; 93005; 93010

== ENCOUNTER 2018-02-18 06:49 | Inpatient (IN) | payer MEDICARE, OTHER ==
[~2018-02-18 06:49] MED LIST changes: +BUPIVACAINE INJ/PF LIPOSOME/PF 266 MG/20 ML SDV IJ PRN; +CEFAZOLIN INJ 1 GM VIAL IV PRN; +IBUPROFEN 800 MG/NS 250 ML IV PRN; +LACTATED RINGERS 1000 ML IV PRN; +LANSOPRAZOLE 15 MG TAB.RAP.DR PO PRN; +LIDOCAINE 0.5% INJ-PF (5 MG/ML) 50 ML SDV SUBCUT PRN; +OXYCODONE HCL SR 10 MG TABLET PO PRN; -REGADENOSON INJ 0.4 MG/5 ML DISP.SYRIN IV ONE; +VANCOMYCIN HCL 1,000 MG in DEXTROSE 5%-WATER 250 ML IV PRN
[2018-02-18] MEDS ORDERED: LIDOCAINE 2% INJ-PF (20 MG/ML) 10 ML AMPUL ONE (06:56)
[2018-02-18] MEDS ORDERED: FENTANYL CITRATE INJ/PF 100 MCG/2 ML AMPUL ONE (06:56)
[2018-02-18] MEDS ORDERED: TRANEXAMIC ACID INJ/PF 1,000 MG/10 ML SDV IV ONE ×3 (06:57→11:31)
[2018-02-18] MEDS ORDERED: PROPOFOL INJ 200 MG/20 ML VIAL IV ONE ×2 (06:57→10:47)
[2018-02-18] MEDS ORDERED: ONDANSETRON HCL INJ/PF 4 MG/2 ML SDV ONE (06:57)
[2018-02-18] MEDS ORDERED: MIDAZOLAM 2 MG/2 ML INJ ONE (06:57)
[2018-02-18] MEDS ORDERED: EPHEDRINE SULFATE INJ 50 MG/1 ML AMPULE ONE (06:57)
[2018-02-18] MEDS ORDERED: TETRACAINE HCL/PF 20MG/2ML AMPULE (SPINAL) ONE (07:24)
[2018-02-18] MEDS ORDERED: THROMBIN (BOVINE) TOPICAL 5000 UNIT VIAL ONE (07:36)
[2018-02-18] MEDS ORDERED: BUPIVACAINE INJ/PF LIPOSOME/PF 266 MG/20 ML SDV ONE (07:36)
[2018-02-18] MEDS ORDERED: THROMBIN (BOVINE) TOPICAL 20000 UNIT VIAL ONE (07:36)
[2018-02-18] MEDS ORDERED: THROMBIN (BOVINE) 5000 UNIT EPITAXIS KIT ONE (07:37)
[2018-02-18] MEDS ORDERED: PHENYLEPHRINE HCL INJ/PF 10 MG/1 ML SDV ONE (07:59)
--- NOTE | 2018-02-18 08:12 | Physician Advisory Note ---
Physician Advisor ProgressNote .: Pursuant to the plan for Bing Napier, I have reviewed the medical record for this patient. Physician Advisor Statement: Please consider documenting, if you agree: 1. "chronic diastolic CHF" (ECHO 2013 = "impaired LV relaxation", another way of saying diastolic HF) 2. "Alcohol abuse +/- dependence" (see below) Nice job hitting all points of documentation for status and surgical necessity in this case! CK Status: appropriate for Inpatient status for TKA: 62yo morbidly obese pt w/DM- 2, depression (multiple antidepressants, 2 prior psych hospital admissions - for "meds changes" and suicidal ideation respectively, and admission for 9 days 04/30/17 with Acute REspiratory Failure with aspiration pneumonia due to suicidal attempt with overdose), HTN, HLD, hypothyroidism, prior PSVT, chronic diastolic CHF per ECHO 2013, anemia (Hgb 10.8 on 05/06/17), h/o substance abuse, continued "occasional" use of EtOH in pt who admitted heavy use of cinnamon whiskey on admission 04/30/17 and had to be "heavily sedated" on vent that admission, and prior Lt TKA with suspected current partial quad tendon tear on Lt, PROMIS score of only 27 - strong expectation for needing at least 2 MNs in hospital monitoring/tx after surgery. "Surgical necessity": Pt's need for surgery is nicely documented - has tried NSAIDS including Mobic, as well as Flexeril, and home exercise program, cane. Still having 8/10 pain (w/rest?), worsened w/standing, w/decreased ROM, waddling gait, crepitus, decreased ROM, mild varus deformity, and complete loss of medial and lateral joint space. Attending explains reasoning/concerns well.
[2018-02-18] MEDS ORDERED: DIPHENHYDRAMINE HCL 50 MG/ML VIAL IV PRN ×2 (08:18→10:01)
[2018-02-18] MEDS ORDERED: PROMETHAZINE HCL INJ 25 MG/1 ML VIAL IV PRN (08:18)
[2018-02-18] MEDS ORDERED: FENTANYL CITRATE INJ/PF 100 MCG/2 ML AMPUL IV PRN ×3 (08:18)
[2018-02-18] MEDS ORDERED: (PENDING PHARMACY ID) (Levothyroxine Sodium [Synthroid] 125 MCG) PO SCH (10:00)
[2018-02-18] MEDS ORDERED: (PENDING PHARMACY ID) (Losartan/Hydrochlorothiazide [Hyzaar 50-12.5 Tablet] 1 EACH) PO SCH (10:00)
[2018-02-18] MEDS ORDERED: (PENDING PHARMACY ID) (Omega-3 Fatty Acids/Fish Oil [Fish Oil 1,000 Mg Capsule] 1,000 MG) PO SCH (10:00)
[2018-02-18] MEDS ORDERED: MULTIVITAMIN THER AND MINERALS PO SCH (10:00)
[2018-02-18] MEDS ORDERED: (PENDING PHARMACY ID) (Diltiazem Hcl [Diltiazem 24hr Er] 180 MG) PO SCH (10:00)
--- NOTE | 2018-02-18 10:00 | Operative Report ---
Operative Report DATE OF SURGERY: 02/18/18 PREOPERATIVE DIAGNOSIS: Right knee arthritis OPERATION: Right knee arthroplasty SURGEON: DSE NELSON ANESTHESIA: Spinal TISSUE REMOVED OR ALTERED: Bone to pathology ESTIMATED BLOOD LOSS: 100 PROCEDURE: Implants used: Femur: Gita triathlon size 5 CR femur Tibia: 4 tibia Tibial liner: 9 mm CS insert Patella: 38 mm oval patella Procedure with the patient supine on the operating table the right the limb is prepped and draped in a sterile fashion. The limb was elevated for exsanguination and the tourniquet inflated to 280 torr. A standard midline median parapatellar approach the knee is taken. Access is gained to the femoral canal through the intercondylar notch. Intramedullary alignment instrumentation used to resect 10 mm of distal femur in 5 of valgus. Sizing guide indicated a size 5 femur. Appropriate cutting jig is then used to fashion anterior posterior and chamfer cuts. A trial reduction femurs performed and this is judged to be adequate. Attention was next turned to the tibia. Using an extra medullary alignment system 9 millimeters was resected off the lateral tibial plateau. This is sized to a size 4 tibia. A trial reduction was now performed with a 5 femur and a for tibia using a 9 millimeters spacer. It is full extension and central patellofemoral tracking. The articular surface the patella was next resected using an oscillating saw. All trial implants were removed. Polymethylmethacrylate is mixed and used to cement the above implants in place. On adequate curing the cement excess cement was removed the tourniquet was deflated hemostasis obtained the wound is then closed in layers using interrupted Vicryl followed by winsome. A sterile compressive dressing was applied and the patient returned to recovery room in satisfactory condition.
[2018-02-18] MEDS ORDERED: MORPHINE SULFATE 10 MG/ML INJ IV PRN ×3 (10:01)
[2018-02-18] MEDS ORDERED: ZOLPIDEM TARTRATE 5 MG TABLET PO PRN (10:01)
[2018-02-18] MEDS ORDERED: ONDANSETRON HCL INJ/PF 4 MG/2 ML SDV IV PRN (10:01)
[2018-02-18] MEDS ORDERED: MAG HYDROX/AL HYDROX/SIMETH SUSP 30 ML UDCUP PO PRN (10:01)
[2018-02-18] MEDS ORDERED: ONDANSETRON 4 MG TAB.RAPDIS PO PRN (10:01)
[2018-02-18] MEDS ORDERED: RINGERS SOLUTION,LACTATED 1,000 ML IV PRN (10:01)
[2018-02-18] MEDS ORDERED: ACETAMINOPHEN 325 MG TABLET PO PRN (10:01)
[2018-02-18] MEDS ORDERED: MORPHINE SULFATE 10 MG/ML INJ IM PRN (10:01)
--- NOTE | 2018-02-18 11:08 | RADIOLOGY REPORT (SQ) ---
EXAM DESCRIPTION: KNEE RIGHT 2 VIEWS COMPLETED DATE/TIME: 02/18/2018 10:56 am REASON FOR STUDY: Post OP -Long Cassette in PACU M17.11 UNILATERAL PRIMARY OSTEOARTHRITIS, RIGHT KN EE COMPARISON: None. NUMBER OF VIEWS: Two view(s). TECHNIQUE: Digital radiographic images of the right knee post-procedure. LIMITATIONS: None. FINDINGS: BONES: No worrisome or unexpected findings post-procedure. DEVICE: Total right knee prostheses. Position and alignment are anatomic. SOFT TISSUES: No worrisome findings. Expected postoperative soft tissue changes. IMPRESSION: SATISFACTORY POSTOPERATIVE RIGHT KNEE. TECHNICAL DOCUMENTATION: JOB ID: [id number] [employer]- All Rights Reserved Reading location - IP/workstation name: [email or web address]
[2018-02-18] MEDS ORDERED: DEXTROSE 50%-WATER SYRINGE 25 GM/50 ML DOSE IV PRN (12:35)
[2018-02-18] MEDS ORDERED: DEXTROSE 40% GEL 15 GM TUBE X 2 PO PRN (12:35)
[2018-02-18] MEDS ORDERED: DEXTROSE 50%-WATER SYRINGE 12.5 GM/25 ML DOSE IV PRN (12:35)
[2018-02-18] MEDS ORDERED: GLUCAGON,HUMAN RECOMB 1 MG INJ IM PRN (12:35)
[2018-02-18] MEDS ORDERED: INSULIN LISPRO 100 UNIT/ML 3 ML VIAL SUBCUT PRN (12:35)
[2018-02-18] MEDS ORDERED: DEXTROSE 40% GEL 15 GM TUBE PO PRN (12:35)
[2018-02-18] MEDS: DOCUSATE SODIUM 100 MG CAPSULE PO SCH (14:54)
[2018-02-18] MEDS: ASPIRIN 81 MG TABLET, CHEWABLE PO SCH (14:54)
[2018-02-18] MEDS: OXYCODONE HCL IR 5 MG TABLET PO PRN (14:55)
[2018-02-18] MEDS: PREGABALIN 75 MG CAPSULE PO SCH (17:37)
[2018-02-18] MEDS: METFORMIN HCL 500 MG TABLET PO SCH (17:37)
[2018-02-18] MEDS: SENNOSIDES/DOCUSATE 8.6-50 MG 1 EACH TABLET PO SCH (17:37)
[2018-02-18] MEDS: DULOXETINE HCL 30 MG CAPSULE.DR PO SCH (17:37)
[2018-02-18] MEDS ORDERED: MELATONIN 5 MG TABLET PO SCH (22:00)
[2018-02-18] MEDS ORDERED: (PENDING PHARMACY ID) (Metformin Hcl [Metformin Hcl Er] 500 MG) PO SCH (22:00)
[2018-02-18] MEDS ORDERED: SIMVASTATIN 40 MG TABLET PO SCH (22:00)
[2018-02-18] MEDS ORDERED: (PENDING PHARMACY ID) (Melatonin [Melatonin] 10 MG) PO SCH (22:00)
[2018-02-18] MEDS ORDERED: TRAZODONE HCL 50 MG TABLET PO SCH (22:00)
[2018-02-18] MEDS ORDERED: VANCOMYCIN HCL 1,000 MG in DEXTROSE 5%-WATER 250 ML IV ONE (22:01)
[2018-02-18] MEDS: OXYCODONE HCL SR 10 MG TABLET PO SCH (22:03)
[2018-02-19] MEDS: OXYCODONE HCL IR 5 MG TABLET PO PRN ×2 (03:38→12:18)
[2018-02-19] MEDS ORDERED: LANSOPRAZOLE 30 MG TAB.RAP.DR PO SCH (06:00)
[2018-02-19] MEDS ORDERED: LEVOTHYROXINE SODIUM 0.025 MG TABLET PO SCH (06:00)
[2018-02-19] MEDS ORDERED: LEVOTHYROXINE SODIUM 0.1 MG TABLET PO SCH (06:00)
[2018-02-19 06:23] LABS: HEMATOCRIT 33.2 % (36.0-47.0); HEMOGLOBIN 11.3 g/dL (12.0-15.5); MEAN CORPUSCULAR HEMOGLOBIN 31.6 pg (27.0-33.4); MEAN CORPUSCULAR HGB CONC 34.1 g/dL (32.0-36.0); MEAN CORPUSCULAR VOLUME 93 fl (80-97); PLATELET COUNT 178 10^3/uL (150-450); RED BLOOD COUNT 3.59 10^6/uL (3.72-5.28); RED CELL DISTRIBUTION WIDTH 13.5 % (11.5-14.0); WHITE BLOOD COUNT 9.8 10^3/uL (4.0-10.5)
--- NOTE | 2018-02-19 06:36 | PDOC PROGRESS REPORT ---
Subjective Progress Note for:: 02/19/18 Reason For Visit: M17.11 UNILATERAL PRIMARY OSTEOARTHRITIS, RIGHT KN 62-year-old white female postop day 1 right knee arthroplasty. Patient complaining of pain this morning. Limited ability to ambulate yesterday at least in part to a prolonged spinal anesthetic delaying physical therapy until the end of the day. Physical Exam Vital Signs: Temp Pulse Resp BP Pulse Ox 36.9 C 83 17 129/51 H 91 L 02/19/18 00:30 02/19/18 00:30 02/19/18 00:30 02/19/18 00:30 02/19/18 00:30 Intake & Output 02/17/18 02/18/18 02/19/18 06:59 06:59 06:59 Intake Total 0 4657 Output Total 2049 Balance 0 2607 Weight 134.6 kg General appearance: PRESENT: mild distress, obese Head exam: PRESENT: normocephalic Respiratory exam: PRESENT: unlabored Cardiovascular exam: PRESENT: RRR Pulses: PRESENT: +1 pedal pulses bilateral Vascular exam: PRESENT: normal capillary refill GI/Abdominal exam: PRESENT: soft Rectal exam: PRESENT: deferred Extremities exam: PRESENT: other - Right lower extremity dressing clean dry and intact. Minimal pedal edema. Distal neurovascular examination is intact. Neurological exam: PRESENT: alert, awake, oriented to person, oriented to place , oriented to time, oriented to situation. ABSENT: motor sensory deficit Psychiatric exam: PRESENT: appropriate affect, normal mood. ABSENT: homicidal ideation, suicidal ideation Skin exam: PRESENT: dry, intact, warm. ABSENT: cyanosis, rash Results Laboratory Results: 02/19/18 05:33 02/18/18 02/19/18 07:25 05:33 WBC 9.8 RBC 3.59 L Hgb 11.3 L Hct 33.2 L MCV 93 MCH 31.6 MCHC 34.1 RDW 13.5 Plt Count 178 Potassium 4.0 Glucose 124 H Impressions: Knee X-Ray 02/18/18 10:03 IMPRESSION: SATISFACTORY POSTOPERATIVE RIGHT KNEE. Status: Imported from PACS Assessment & Plan - Diagnosis (1) Arthritis of right knee Is this a current diagnosis for this admission?: Yes Plan: 62-year-old white female with obesity now postop day 1 right knee arthroplasty. The patient has not regained functional status to consider discharge home today. Patient will be seen by physical therapy today and anticipate discharge home tomorrow with home health services. - Time Time Spent with patient: 15-24 minutes Anticipated discharge: Home with Homehealth Within: within 24 hours
[2018-02-19 06:47] LABS: ANION GAP 10 (5-19); BLOOD UREA NITROGEN 26 mg/dL (7-20); CALCIUM 8.9 mg/dL (8.4-10.2); CARBON DIOXIDE 28 mmol/L (22-30); CHLORIDE 101 mmol/L (98-107); GLUCOSE 122 mg/dL (75-110); POTASSIUM 4.4 mmol/L (3.6-5.0); SODIUM 138.5 mmol/L (137-145)
[2018-02-19] MEDS: ASPIRIN 81 MG TABLET, CHEWABLE PO SCH (08:38)
[2018-02-19] MEDS: DULOXETINE HCL 30 MG CAPSULE.DR PO SCH (08:38)
[2018-02-19] MEDS: DOCUSATE SODIUM 100 MG CAPSULE PO SCH (08:38)
[2018-02-19] MEDS: METFORMIN HCL 500 MG TABLET PO SCH (08:38)
[2018-02-19] MEDS: PREGABALIN 75 MG CAPSULE PO SCH (08:40)
[2018-02-19] MEDS: OXYCODONE HCL SR 10 MG TABLET PO SCH (08:40)
[2018-02-19] MEDS: SENNOSIDES/DOCUSATE 8.6-50 MG 1 EACH TABLET PO SCH (08:41)
[2018-02-19] MEDS ORDERED: HYDROCHLOROTHIAZIDE 25 MG TABLET PO SCH (10:00)
[2018-02-19] MEDS ORDERED: DILTIAZEM HCL 180 MG CAPSULE.CR PO SCH (10:00)
[2018-02-19] MEDS ORDERED: OMEGA-3 ACID ETHYL ESTERS 1 GM CAPSULE PO SCH (10:00)
[2018-02-19] MEDS ORDERED: LOSARTAN POTASSIUM 50 MG TABLET PO SCH (10:00)
[2018-02-19] MEDS ORDERED: PRENATAL VITAMIN W DHA CAPSULE PO SCH (10:00)
[2018-02-19] MEDS ORDERED: MULTIVIT-STRESS FORMULA/ZINC TABLET PO SCH (10:00)
[2018-02-19 13:41] VITALS: BP 150/73
[2018-02-19] MEDS ORDERED: BUPROPION HCL 100 MG TABLET PO SCH (14:00)
== END 2018-02-19 15:23 | disposition home health service (06) | DRG 470 ==
LOC: INOR 06:49 → 4S 11:47
PROVIDERS: ADMIT Orthopaedic Surgery; ATTEND Orthopaedic Surgery
PROC: 0SRC0J9 Replacement of Right Knee Joint with Synthetic Substitute, Cemented, Open Approach (ICD-10-PCS; principal; 2018-02-18 08:45)
DX: M17.11 Unilateral primary osteoarthritis, right knee (principal); F32.9 Major depressive disorder, single episode, unspecified; E03.9 Hypothyroidism, unspecified; E11.9 Type 2 diabetes mellitus without complications; I10 Essential (primary) hypertension; Z88.2 Allergy status to sulfonamides; Z79.899 Other long term (current) drug therapy
CPT/HCPCS: 01402; 36415; 80048; 82947; 84132; 85027; 88305; 88311; 94799; C2625; C9290; G8978-GP; G8979-GP; G8987-GO; G8988-GO; G8989-GO; J0690; J1741; J2250; J2270; J2370; J2405; J2704; J3010; J3370; J3490; J7050; J7060

== ENCOUNTER → 2018-07-16 | Outpatient (CLI) | payer MEDICARE, OTHER ==
--- NOTE | 2018-07-16 15:42 | WOMENS IMAGING REPORT ---
EXAM DESCRIPTION: 3D SCREENING MAMMO BILAT COMPLETED DATE/TIME: 07/16/2018 3:29 pm REASON FOR STUDY: BILATERAL SCREENING MAMMO/Z12.31 Z12.31 ENCNTR SCREEN MAMMOGRAM FOR MALIGNANT FAZAL PLASM OF JEYSON COMPARISON: 01/11/2017 and 05/07/2013. TECHNIQUE: Standard craniocaudal and mediolateral oblique views of each breast recorded using digita l acquisition and breast tomosynthesis. LIMITATIONS: None. FINDINGS: No masses, calcifications or architectural distortion. No areas of suspicion. Read with the assistance of CAD. .[facility] - R2 [employer] Version 1.3 .[facility] Imaging - R2 [employer] Version 1.3 .[facility] Imaging - R2 [employer] Version 2.4 .[facility] [place] - R2 [employer] Version 2.4 .[facility] - R2 [employer] Version 9.2 IMPRESSION: NORMAL MAMMOGRAM. BIRADS 1. BREAST DENSITY: a. The breasts are almost entirely fatty. BIRAD: 1 NEGATIVE RECOMMENDATION: ROUTINE SCREENING COMMENT: The patient has been notified of the results by letter per MQSA requirements. Additional no tification policies are in place for contacting patient with suspicious or incomplete findings. Quality ID #225: The [employer] recommends an annual screening mammogram for women aged 40 years or over. This facility utilizes a reminder system to ensure that all patients receive reminder letters, and/or direct phone calls for appointments. This includes reminders for routine scr eening mammograms, diagnostic mammograms, or other Breast Imaging Interventions when appropriate. Th is patient will be placed in the appropriate reminder system. The [employer] (ACR) has developed recommendations for screening MRI of the breast s in certain patient populations, to be used in conjunction with mammography. Breast MRI surveillanc e may be appropriate for women with more than 20% lifetime risk of developing breast cancer as deter mined by genetic testing, significant family history of the disease, or history of mantle radiation f or Hodgkins Disease. ACR Practice Guidelines 2008. DBT Technology DBT is a type of tomographic mammography. With conventional mammography, overlapping breast tissue ma y make lesions difficult to detect, even with good compression. DBT uses an x-ray tube that rotates a round the breast, taking images at different angles. These images are then combined to create thin sl ices of the breast that the radiologist can view as a 3D reconstruction. The [employer] unit can perform full-field digital mammograms (2D imaging); or DBT (3D imaging); or both, in a combination mode that quickly performs both the mammogram and the tomosynthesis scan while the breast is still compressed. PQRS 6045F: Fluoroscopic imaging is not utilized for breast tomosynthesis. TECHNICAL DOCUMENTATION: FINDING NUMBER: (1) ASSESSMENT: (1) JOB ID: [id number] [employer]- All Rights Reserved Reading location - IP/workstation name: [email or web address]
== END ==
LOC: WI 14:50
PROVIDERS: ATTEND Obstetrics & Gynecology Gynecology
DX: Z12.31 Encounter for screening mammogram for malignant neoplasm of breast (principal)
CPT/HCPCS: 77063; 77067

== ENCOUNTER 2018-10-14 21:07 | Emergency (ER) | payer MEDICARE, OTHER ==
--- NOTE | 2018-10-14 22:05 | RADIOLOGY REPORT (SQ) ---
EXAM DESCRIPTION: XR ANKLE 3 OR MORE VIEWS COMPLETED DATE/TME: 10/14/2018 21:14 CLINICAL HISTORY: 63 years, Female, pain COMPARISON: None. NUMBER OF VIEWS: TECHNIQUE: LIMITATIONS: None. FINDINGS: There is fracture of the medial malleolus, with some distraction. There is fracture of the distal fibula, with some posterior and lateral displacement. There is lateral subluxation of the talus. There is a large plantar calcaneal spur. IMPRESSION: Fractures of the medial malleolus and distal fibula. Lateral subluxation of the talus. copyright 2010 [employer]- All Rights Reserved
--- NOTE | 2018-10-14 23:05 | ER Document Report ---
ED Extremity Problem, Lower - General Chief Complaint: Ankle Pain Stated Complaint: FALL/LEFT ANKLE PAIN Time Seen by Provider: 10/14/18 23:04 Primary Care Provider: MICHI BOWSER MD [EMERITUS] - Follow up as needed Mode of Arrival: Wheelchair Information source: Patient, Relative Notes: HISTORY OF PRESENT ILLNESS: Patient is a 63-year-old female with a past medical history of multiple chronic health conditions who presents with mechanical fall earlier today resulting in left ankle pain and swelling. Patient reports she slipped at home and fell onto the left side with her left leg caught behind her, felt an immediate pop and since then has had pain to the left ankle. She denies hitting her head, no passing out, no confusion or disorientation, no numbness or paresthesias of the extremities. Onset: Suddenly prior to arrival Provocation: Movement Quality: Aching Radiation: Isolated to the left ankle Severity: Moderate Timing: Constant REVIEW OF SYSTEMS: CONSTITUTIONAL : Denies fever or chills, no sweats. Denies recent illness. EENT: Denies eye, ear, throat, or mouth pain or symptoms. Denies nasal or sinus congestion. CARDIOVASCULAR: Denies chest pain. RESPIRATORY: Denies cough, cold, or chest congestion. Denies shortness of breath, difficulty breathing, or wheezing. GASTROINTESTINAL: Denies abdominal pain. Denies nausea, vomiting, or diarrhea. Denies constipation. GENITOURINARY: Denies difficulty urinating, painful urination, burning, frequency, or blood in urine. FEMALE GENITOURINARY: Denies vaginal bleeding, abnormal or irregular periods. Last menstrual period MUSCULOSKELETAL: Positive left ankle pain. Denies neck or back pain. SKIN: Denies rash or skin lesions. HEMATOLOGIC : Denies easy bruising or bleeding. LYMPHATIC: Denies swollen, enlarged glands. NEUROLOGICAL: Denies altered mental status or loss of consciousness. Denies headache. Denies weakness or paralysis or loss of use of either side. Denies problems with gait or speech. Denies sensory or motor loss. PSYCHIATRIC: Denies anxiety or stress or depression. All other systems reviewed and negative. PHYSICAL EXAMINATION: GENERAL: Well-appearing, well-nourished and in no acute distress. HEAD: Atraumatic, normocephalic. No scalp deformity, depression, or crepitance. EYES: Pupils are 3 mm and equal/round/reactive to light, extraocular movements intact, sclera anicteric, conjunctiva are normal. ENT: Nares patent bilaterally, oropharynx clear without exudates or palatal petechia. Moist mucous membranes. No tonsil hypertrophy. NECK: Normal range of motion, supple without lymphadenopathy. LUNGS: Breath sounds present, equal, and clear to auscultation bilaterally. No wheezes, rales, or rhonchi. HEART: Regular rate and rhythm without murmurs, rubs, or gallops. 2+ peripheral pulses. Normal capillary refill. ABDOMEN: Soft, nontender, nondistended. Normoactive bowel sounds. No guarding, no rebound. No masses appreciated. EXTREMITIES: Mild to moderate swelling to the left lateral and medial malleolus, restricted range of motion secondary to pain, no crepitance or deformity noted, normal capillary refill less than 2 seconds, 2+ pulses in bilateral lower extremities. No cyanosis. NEUROLOGICAL: No focal neurological deficits. Moves all extremities spontaneously and on command. PSYCH: Normal mood, normal affect. No suicidal thoughts/ideations. No homocidal thoughts/ideations. No hallucinations. SKIN: Warm, dry, normal turgor, no rashes or lesions noted. ASSESSMENT AND PLAN: This patient is a 63-year-old female who presents with apparent fracture versus sprain of the left ankle. 1. Will obtain x-rays. 2. Will give oral Percocet and reassess. 3. If fractured, will have appropriate splint placed and patient will likely be followed up with orthopedic surgery and managed as an outpatient depending on severity. TRAVEL OUTSIDE OF THE [place] IN LAST 30 DAYS: No - Related Data Allergies/Adverse Reactions: Sulfa (Sulfonamide Antibiotics) Allergy (Verified 02/18/18 07:51) RASH hydrocodone Adverse Reaction (Verified 02/18/18 07:51) Past Medical History - General Information source: Patient - Social History Smoking Status: Never Smoker Chew tobacco use (# tins/day): No Frequency of alcohol use: None Drug Abuse: None Lives with: Family Family History: CAD Patient has suicidal ideation: No Patient has homicidal ideation: No - Past Medical History Cardiac Medical History: Reports: Hx Hypercholesterolemia, Hx Hypertension Denies: Hx Atrial Fibrillation, Hx Congestive Heart Failure, Hx Coronary Artery Disease, Hx Heart Attack, Hx Peripheral Vascular Disease, Hx Heart Murmur Pulmonary Medical History: Reports: None Denies: Hx Asthma, Hx Bronchitis, Hx Pneumonia EENT Medical History: Reports: None Neurological Medical History: Reports: None. Denies: Hx Cerebrovascular Accident, Hx Seizures Endocrine Medical History: Reports: Hx Hypothyroidism. Denies: Hx Graves' Disease, Hx Hyperthyroidism Renal/ Medical History: Reports: None. Denies: Hx Kidney Stones Malignancy Medical History: Reports: None. Denies: Hx Leukemia GI Medical History: Reports: None. Denies: Hx Gastroesophageal Reflux Disease, Hx Hepatitis, Hx Hiatal Hernia, Hx Ulcer Musculoskeletal Medical History: Reports Hx Arthritis - joint, Denies Hx Fibromyalgia, Denies Hx Muscular Dystrophy Skin Medical History: Reports None Psychiatric Medical History: Reports: Hx Depression Denies: Hx Bipolar Disorder, Hx Post Traumatic Stress Disorder, Hx Schizophrenia Traumatic Medical History: Reports: None. Denies: Hx Fractures Infectious Medical History: Reports: None. Denies: Hx Hepatitis, Hx HIV Past Surgical History: Reports: Hx Orthopedic Surgery - left knee surgery, Hx Tonsillectomy. Denies: Hx Appendectomy, Hx Bowel Surgery, Hx Section, Hx Cholecystectomy, Hx Coronary Artery Bypass Graft, Hx Gastric Bypass Surgery, Hx Herniorrhaphy, Hx Hysterectomy, Hx Mastectomy, Hx Open Heart Surgery, Hx Pacemaker, Hx Tubal Ligation - Immunizations Immunizations up to date: Yes Hx Diphtheria, Pertussis, Tetanus Vaccination: Yes Physical Exam - Vital signs Vitals: Temp Pulse Resp BP Pulse Ox 98.2 F 89 18 131/73 H 99 10/14/18 21:15 10/14/18 21:15 10/14/18 21:15 10/14/18 21:15 10/14/18 21:15 Course - Re-evaluation Re-evalutation: 10/15/18 01:41 Patient has splint applied to the left lower extremity in appropriate position. She will be discharged home with return precautions and follow-up with orthopedic surgery. Patient agrees with the plan. - Vital Signs Vital signs: Temp Pulse Resp BP Pulse Ox 98.2 F 89 16 131/73 H 99 10/14/18 21:18 10/14/18 21:18 10/14/18 21:18 10/14/18 21:18 10/14/18 21:18 - Diagnostic Test Radiology reviewed: Image reviewed, Reports reviewed Discharge - Discharge Clinical Impression: Bimalleolar fracture of left ankle Qualifiers: Encounter type: initial encounter Fracture type: closed Qualified Code(s): S82.842A - Displaced bimalleolar fracture of left lower leg, initial encounter for closed fracture Condition: Good Disposition: HOME, SELF-CARE Instructions: Fractured Ankle (Bimalleolar) ([facility]) Additional Instructions: You have been evaluated in the Emergency Department for a fractured left ankle. Please follow-up with your orthopedic surgeon in 1 week as instructed. Return to the Emergency Department if you experience increased pain uncontrolled by medications, increased swelling with numbness/tingling or discoloration of the toes of your left foot, or any other concerning symptoms. Prescriptions: Diclofenac Sodium 75 mg PO BID #30 tablet. Oxycodone HCl/Acetaminophen [Percocet 5-325 mg Tablet] 1 tab PO Q6H PRN #28 tab PRN Reason: For Pain Referrals: MICHI BOWSER MD [EMERITUS] - Follow up as needed DES NELSON MD [ACTIVE STAFF] - Follow up as needed Print Language: [place]
[2018-10-14] MEDS ORDERED: OXYCODONE-ACETAMINOPHEN 5-325 MG TABLET PO ONE (23:36)
[2018-10-15 02:16] VITALS: BP 128/67
== END 2018-10-15 02:15 | disposition home or self-care (01) ==
LOC: ER 21:07
DX: S82.842A Displaced bimalleolar fracture of left lower leg, initial encounter for closed fracture (principal); W01.0XXA Fall on same level from slipping, tripping and stumbling without subsequent striking against object, initial encounter; Y92.009 Unspecified place in unspecified non-institutional (private) residence as the place of occurrence of the external cause; Z88.2 Allergy status to sulfonamides; Z88.6 Allergy status to analgesic agent; E78.00 Pure hypercholesterolemia, unspecified; I10 Essential (primary) hypertension; E03.9 Hypothyroidism, unspecified
CPT/HCPCS: 99283; 73610; A9270

== ENCOUNTER 2018-10-23 06:10 | Day surgery (SDC) | payer MEDICARE, OTHER ==
[2018-10-21 10:37] LABS: HEMATOCRIT 38.6 % (36.0-47.0); HEMOGLOBIN 13.3 g/dL (12.0-15.5); MEAN CORPUSCULAR HEMOGLOBIN 32.2 pg (27.0-33.4); MEAN CORPUSCULAR HGB CONC 34.5 g/dL (32.0-36.0); MEAN CORPUSCULAR VOLUME 93 fl (80-97); PLATELET COUNT 273 10^3/uL (150-450); RED BLOOD COUNT 4.14 10^6/uL (3.72-5.28); RED CELL DISTRIBUTION WIDTH 13.7 % (11.5-14.0); WHITE BLOOD COUNT 9.1 10^3/uL (4.0-10.5)
[2018-10-21 10:56] LABS: ANION GAP 15 (5-19); BLOOD UREA NITROGEN 25 mg/dL (7-20); CALCIUM 9.6 mg/dL (8.4-10.2); CARBON DIOXIDE 29 mmol/L (22-30); CHLORIDE 97 mmol/L (98-107); GLUCOSE 105 mg/dL (75-110); POTASSIUM 4.4 mmol/L (3.6-5.0); SODIUM 140.7 mmol/L (137-145)
[2018-10-21 10:59] LABS: APPEARANCE,URINE CLOUDY; BILIRUBIN,URINE SMALL (NEGATIVE); COLOR,URINE AMBER; GLUCOSE, URINE NEGATIVE (NEGATIVE); KETONES,URINE NEGATIVE (NEGATIVE); LEUKOCYTE ESTERASE,URINE MODERATE (NEGATIVE); NITRITE,URINE NEGATIVE (NEGATIVE); PROTEIN,URINE 30 mg/dL (NEGATIVE); URINE SPECIFIC GRAVITY 1.023
--- NOTE | 2018-10-21 16:59 | EKG REPORT ---
SEVERITY:- ABNORMAL ECG - SINUS RHYTHM LEFT ATRIAL ABNORMALITY LEFT VENTRICULAR HYPERTROPHY : Confirmed by: Sho Hopson 21-Oct-2018 16:58:59
[~2018-10-23 06:10] MED LIST changes: -BUPIVACAINE INJ/PF LIPOSOME/PF 266 MG/20 ML SDV IJ PRN; +CEFAZOLIN 2 GM/D5W RTU 2 GM/50 ML RTUPB IV ONE; +CEFAZOLIN 2 GM/D5W RTU 2 GM/50 ML RTUPB IV PRN; -CEFAZOLIN INJ 1 GM VIAL IV PRN; -IBUPROFEN 800 MG/NS 250 ML IV PRN; -LANSOPRAZOLE 15 MG TAB.RAP.DR PO PRN; -OXYCODONE HCL SR 10 MG TABLET PO PRN; -VANCOMYCIN HCL 1,000 MG in DEXTROSE 5%-WATER 250 ML IV PRN
[2018-10-23] MEDS ORDERED: BUPIVACAINE HCL 0.5%-EPI 1:200000 INJ/PF 30 ML VIAL ONE (08:14)
[2018-10-23] MEDS ORDERED: FENTANYL CITRATE INJ/PF 100 MCG/2 ML AMPUL ONE (08:21)
[2018-10-23] MEDS ORDERED: LIDOCAINE 2% INJ-PF (20 MG/ML) 10 ML AMPUL ONE (08:21)
[2018-10-23] MEDS ORDERED: ACETAMINOPHEN 1,000 MG/100 ML RTUPB IV ONE (08:22)
[2018-10-23] MEDS ORDERED: MIDAZOLAM 2 MG/2 ML INJ ONE (08:22)
[2018-10-23] MEDS ORDERED: PROPOFOL INJ 200 MG/20 ML VIAL IV ONE (08:22)
[2018-10-23] MEDS ORDERED: ONDANSETRON HCL INJ/PF 4 MG/2 ML SDV ONE (08:22)
[2018-10-23] MEDS ORDERED: MEPERIDINE HCL/PF INJ 25 MG/1 ML DISP.SYRIN IV PRN (09:12)
[2018-10-23] MEDS ORDERED: DIPHENHYDRAMINE HCL 50 MG/ML VIAL IV PRN (09:12)
[2018-10-23] MEDS ORDERED: FENTANYL CITRATE INJ/PF 100 MCG/2 ML AMPUL IV PRN ×3 (09:12)
[2018-10-23] MEDS ORDERED: ONDANSETRON HCL INJ/PF 4 MG/2 ML SDV IV PRN (09:12)
[2018-10-23] MEDS ORDERED: PROMETHAZINE HCL INJ 25 MG/1 ML VIAL IV PRN ×2 (09:12)
--- NOTE | 2018-10-23 09:53 | Discharge Summary ---
Discharge Summary (SDC) - Discharge Final Diagnosis: Left bimalleolar ankle fracture Date of Surgery: 10/23/18 Discharge Date: 10/23/18 Condition: Good Treatment or Instructions: Touchdown weightbearing restriction left lower extremity Prescriptions: Oxycodone HCl/Acetaminophen [Percocet 5-325 mg Tablet] 1 tab PO Q6H PRN #60 tab PRN Reason: For Pain Referrals: BABAR JAIME MD [Primary Care Provider] - Discharge Diet: As Tolerated, Regular Respiratory Treatments at Home: Deep Breathing/Coughing Discharge Activity: Balance Activity w/Rest, No tub bath Home Care Assistance: None Needed Report the Following to Your Physician Immediately: Shortness of Breath, Fever over 101 Degrees, Drainage-Foul Smelling
--- NOTE | 2018-10-23 09:55 | Operative Report ---
Operative Report DATE OF SURGERY: 10/23/18 PREOPERATIVE DIAGNOSIS: Left bimalleolar ankle fracture OPERATION: Open reduction internal fixation left bimalleolar ankle fracture SURGEON: DES NELSON ANESTHESIA: Spinal ESTIMATED BLOOD LOSS: 100 PROCEDURE: With the patient supine Afrin table left lower extremities prepped and draped in sterile fashion. Limb is elevated for exsanguination tourniquet inflated 280 torr. Longitudinal incisions made over the lateral border of the distal fibula and sharp dissection was carried incision through the periosteum. The periosteum is elevated. The fracture was identified. Its reduced anatomically and held with a lobster claw clamp. A 7-hole [place] one third semitubular stainless steel plate is applied to the lateral surface of the fibula and sec ured with 3 bicortical screws approximately 3 by cortical screws distally. Fracture reduction hardware placement are check fluoroscopically felt to be adequate. Next attention is turned to the medial aspect of the ankle. A longitudinal incision is made over the medial malleolus. In exploring the medial malleolar fragment there is really very little bone integrity left and is mostly a deltoid ligament avulsion from the medial malleolus. I decision is made to attempt to repair this using FiberWire suture. As such #2 FiberWire sutures using a [id number] fashion through the deltoid ligament and then back up into the medial tibial metaphysis through bone holes. Fracture reduction fluoroscopically appears to be adequate. Tourniquet is deflated. Hemostasis obtained with electrocautery. Wound is irrigated bulb lavage. Is closed in layers interrupted Vicryl followed by winsome. A sterile compressive dressing posterior plaster splint were applied. Patient returned to PACU in satisfactory condition.
[2018-10-23] MEDS: HYDROMORPHONE HCL INJ/PF 2 MG/ML AMPULE ONE ×2 (10:10→10:30)
[2018-10-23] MEDS ORDERED: OXYCODONE-ACETAMINOPHEN 5-325 MG TABLET PO PRN (10:39)
--- NOTE | 2018-10-23 11:19 | RADIOLOGY REPORT (SQ) ---
EXAM DESCRIPTION: NO CHG FLUORO; ANKLE LEFT AP/LATERAL COMPLETED DATE/TIME: 10/23/2018 10:12 am REASON FOR STUDY: ORIF LEFT ANKLE ASST WITH FLUORO IN OR S82.842A DISPLACED BIMALLEOLAR FRACTURE OF LEFT LOWER LEG, I Z79.01 [facility] (CURRENT) USE OF ANTICOAGULANTS COMPARISON: Left ankle three views 10/14/2018 FLUOROSCOPY TIME: 0.1 minutes 5 digital C-arm images saved to PACS. TECHNIQUE: Intra-operative images acquired during surgical procedure to evaluate progress. NUMBER OF IMAGES: 5 digital C-arm images LIMITATIONS: None. FINDINGS: Intra procedural imaging and fluoro during ORIF left ankle bimalleolar fracture IMPRESSION: IMAGE(S) OBTAINED DURING PROCEDURE. COMMENT: Quality ID [id number]: Final reports for procedures using fluoroscopy that document radiation exp osure indices, or exposure time and number of fluorographic images (if radiation exposure indices are not available) Please consult full operative report of the attending physician for description of the procedure. TECHNICAL DOCUMENTATION: JOB ID: [id number] [employer]- All Rights Reserved Reading location - IP/workstation name: [email or web address]
--- NOTE | 2018-10-23 11:19 | RADIOLOGY REPORT (SQ) ---
EXAM DESCRIPTION: NO CHG FLUORO; ANKLE LEFT AP/LATERAL COMPLETED DATE/TIME: 10/23/2018 10:12 am REASON FOR STUDY: ORIF LEFT ANKLE ASST WITH FLUORO IN OR S82.842A DISPLACED BIMALLEOLAR FRACTURE OF LEFT LOWER LEG, I Z79.01 CARE HOME (CURRENT) USE OF ANTICOAGULANTS COMPARISON: Left ankle three views 10/14/2018 FLUOROSCOPY TIME: 0.1 minutes 5 digital C-arm images saved to PACS. TECHNIQUE: Intra-operative images acquired during surgical procedure to evaluate progress. NUMBER OF IMAGES: 5 digital C-arm images LIMITATIONS: None. FINDINGS: Intra procedural imaging and fluoro during ORIF left ankle bimalleolar fracture IMPRESSION: IMAGE(S) OBTAINED DURING PROCEDURE. COMMENT: Quality ID [id number]: Final reports for procedures using fluoroscopy that document radiation exp osure indices, or exposure time and number of fluorographic images (if radiation exposure indices are not available) Please consult full operative report of the attending physician for description of the procedure. TECHNICAL DOCUMENTATION: JOB ID: [id number] [employer]- All Rights Reserved Reading location - IP/workstation name: [email or web address]
[2018-10-23] MEDS ORDERED: OXYCODONE-ACETAMINOPHEN 5-325 MG TABLET ONE (11:20)
[2018-10-23 15:34] VITALS: BP 122/61
== END 2018-10-23 12:10 | disposition home or self-care (01) ==
LOC: OROUT 06:10
PROVIDERS: ATTEND Orthopaedic Surgery
DX: S82.842A Displaced bimalleolar fracture of left lower leg, initial encounter for closed fracture (principal); W01.0XXA Fall on same level from slipping, tripping and stumbling without subsequent striking against object, initial encounter; E03.9 Hypothyroidism, unspecified; E11.9 Type 2 diabetes mellitus without complications; J45.909 Unspecified asthma, uncomplicated; E66.9 Obesity, unspecified; Z68.41 Body mass index [BMI] 40.0-44.9, adult; Z88.2 Allergy status to sulfonamides; Z88.5 Allergy status to narcotic agent; Z79.4 Long term (current) use of insulin
CPT/HCPCS: 93005; 36415; 82962; 85027; 80048; 81001; 73600; 93010; 27814; C1713 ×4; C1769; J2250; J3010; A9270; J1170; J2405; J2704; J3490; J0690; J0131; 01480